=== PATIENT | female | born 1955 | race Caucasian/White ===

== ENCOUNTER 2016-09-12 08:13 | Observation (INO) | payer OTHER ==
[~2016-09-12] VITALS: Ht 157.5 cm; Wt 92.4 kg
[~2016-09-12 08:13] MED LIST: ALIG4CAP PO; ATOR20TA15 PO; CHOL1TAB42 PO; DHEA50CA PO; DULO1CAP3 PO; LEVO25TA4 PO; LOSA50TA2 PO; METF850T PO; OMEG300C5 PO; TRAZ100T6 PO; VITA200C3 PO; ZOFR4TAB PO
[2016-09-12] MEDS ORDERED: CHLORHEXIDINE GLUCONATE 2 % 1 PACK (2 CLOTHS) TOPICAL PRN (08:45)
[2016-09-12] MEDS ORDERED: INSULIN HUMAN REGULAR 1,000 UNITS/10 ML VIAL SQ PRN (08:45)
[2016-09-12] MEDS ORDERED: SODIUM CHLORID 0.9% 500 ML IV PRN (08:45)
[2016-09-12] MEDS ORDERED: POVIDONE IODINE 5% (ANTISEPSIS KIT) 4 APPLICATIONS EACH NARE PRN (08:45)
[2016-09-12] MEDS ORDERED: METOPROLOL TARTRATE 25 MG TAB PO PRN (08:45)
[2016-09-12] MEDS ORDERED: HEPARIN SODIUM - SQ 10,000 UNITS/ML VIAL SQ SCH (08:45)
[2016-09-12] MEDS: LACTATED RINGER'S 1000 ML IV PRN ×3 (09:20→19:15)
[2016-09-12 09:29] VITALS: BP 156/90; PULSE 90; RESP 16; TEMP 99; O2SAT 96
[2016-09-12 10:13] LABS: AUTOMATED NEUTROPHIL # 2.9 TH/MM3 (1.8-7.7); BASOPHIL # 0.1 TH/MM3 (0-0.2); BASOPHIL % 1.2 % (0.0-2.0); EOSINOPHIL # 0.2 TH/MM3 (0-0.4); EOSINOPHIL % 2.8 % (0.0-4.0); HEMATOCRIT 40.6 % (35.0-46.0); HEMO FLAGS DIFF FINAL; LYMPH % 36.3 % (9.0-44.0); LYMPHOCYTE # 2.1 TH/MM3 (1.0-4.8); MEAN CELL VOLUME 85.8 FL (80.0-100.0); MEAN CORPUSCULAR HGB CONC 33.8 % (32.0-36.0); NEUT % 49.7 % (16.0-70.0); PLATELET COUNT 291 TH/MM3 (150-450); RED BLOOD COUNT 4.73 MIL/MM3 (4.00-5.30); RED CELL DISTRIBUTION WIDTH 14.6 % (11.6-17.2); WHITE BLOOD COUNT 5.9 TH/MM3 (4.0-11.0)
[2016-09-12 10:21] LABS: ALT (GPT) 119 U/L (10-53)
[2016-09-12 10:22] LABS: PROTHROMBIN TIME - PATIENT 11.3 SEC (9.8-11.6)
[2016-09-12 10:23] LABS: ALKALINE PHOSPHATASE 86 U/L (45-117); TOTAL BILIRUBIN ADULT 0.8 MG/DL (0.2-1.0)
[2016-09-12 10:58] LABS: ANION GAP 6 MEQ/L (5-15); AST (GOT) 82 U/L (15-37); BICARBONATE 29.4 MEQ/L (21.0-32.0); BLOOD UREA NITROGEN 15 MG/DL (7-18); CHLORIDE 103 MEQ/L (98-107); GLOMERULAR FILTRATION RATE 78 ML/MIN (>89); POTASSIUM 4.2 MEQ/L (3.5-5.1); SODIUM (NA) 138 MEQ/L (136-145)
[2016-09-12] MEDS: ceFAZolin 2 GM PREMIX 50 ML IV SCH ×2 (11:51→19:14)
[2016-09-12] MEDS ORDERED: PROPOFOL 200 MG/20 ML AMP IV ONE (12:00)
[2016-09-12] MEDS ORDERED: PHENYLEPH/NS 1000 MCG/10 ML SYR IV ONE (12:00)
[2016-09-12] MEDS ORDERED: LACTATED RINGER'S 1000 ML INJ 1,000 ML IV ONE (12:00)
[2016-09-12] MEDS ORDERED: ONDANSETRON HCL 4 MG/2 ML VIAL IV PUSH ONE (12:00)
[2016-09-12] MEDS ORDERED: VECURONIUM BROMIDE 20 MG VIAL IV ONE (12:00)
[2016-09-12] MEDS ORDERED: NORMOSOL R INJ 1,000 ML IV ONE (12:00)
[2016-09-12] MEDS ORDERED: ACETAMINOPHEN 1000 MG/100 ML VIAL IV ONE (12:34)
[2016-09-12] MEDS ORDERED: MIDAZOLAM HCL 2 MG/2 ML VIAL ONE (12:45)
[2016-09-12] MEDS ORDERED: FAMOTIDINE 20 MG/2 ML VIAL ONE (12:45)
[2016-09-12] MEDS ORDERED: fentaNYL CITRATE 250 MCG/5 ML AMP ONE (13:07)
[2016-09-12] MEDS ORDERED: HYDROmorphone HCL PF 2 MG/ML VIAL ONE (13:07)
[2016-09-12] MEDS ORDERED: LIDOCAINE 1%/EPINEPHrine 1:100,000 SOLN 30 ML VIAL INFIL ONE (14:20)
[2016-09-12] MEDS ORDERED: SUGAMMADEX SODIUM 200 MG/2 ML VIAL IV PUSH ONE ×2 (16:29)
[2016-09-12] MEDS ORDERED: ceFAZolin INJ 1,000 MG VIAL IV ONE (16:30)
[2016-09-12] MEDS ORDERED: diphenhydrAMINE HCL 25 MG CAP PO PRN (17:30)
[2016-09-12] MEDS ORDERED: SODIUM CHLORIDE 0.9% FLUSH 10 ML FLUSH IV FLUSH PRN (17:30)
[2016-09-12] MEDS ORDERED: NON-FORMULARY DRUG (Ondansetron (Zofran) 4 MG) PO PRN (17:30)
[2016-09-12] MEDS ORDERED: HYDROmorphone HCL PF 1 MG/ML VIAL IVP PRN (17:30)
[2016-09-12] MEDS ORDERED: DEXTROSE 50% IN WATER 50 ML VIAL(D50) IV PUSH PRN (18:15)
[2016-09-12] MEDS ORDERED: GLUCAGON 1 MG/ML VIAL OTHER PRN (18:15)
[2016-09-12] MEDS ORDERED: ONDANSETRON ODT 4 MG TAB PO PRN (18:30)
[2016-09-12] MEDS: KETOROLAC TROMETHAMINE 30 MG/ML (IVP) VIAL IVP SCH ×2 (18:30→22:50)
[2016-09-12] MEDS: D5-1/2 NS + KCL 20 MEQ INJ 1,000 ML IV SCH (18:30)
[2016-09-12] MEDS ORDERED: DO NOT ADM ANY ANTICOAGULANT DRUGS PRN (19:15)
[2016-09-12 19:45] VITALS: O2SAT 96
[2016-09-12 20:00] VITALS: BP 124/65; PULSE 94; RESP 17; TEMP 96.2; O2SAT 98
[2016-09-12] MEDS: traZODone HCL 100 MG TAB PO SCH (20:28)
[2016-09-12] MEDS: oxyCODONE/ACETAMINOPHEN 5 MG/325 MG TAB PO PRN (20:28)
[2016-09-12] MEDS: INSULIN NovoLIN REGULAR SUPPLEMENTAL SCALE SQ SCH (20:43)
[2016-09-12] MEDS: SODIUM CHLORIDE 0.9% FLUSH 10 ML FLUSH IV FLUSH SCH (20:45)
[2016-09-12] MEDS ORDERED: ATORVASTATIN 20 MG TAB PO SCH (21:00)
[2016-09-13] VITALS (11 sets, daily range): BP systolic 98–143; BP diastolic 53–69; PULSE 92–136; RESP 17–20; TEMP 96.2–97.3; O2SAT 94–100
[2016-09-13] MEDS: oxyCODONE/ACETAMINOPHEN 5 MG/325 MG TAB PO PRN ×3 (00:21→22:31)
[2016-09-13] MEDS: KETOROLAC TROMETHAMINE 30 MG/ML (IVP) VIAL IVP SCH ×2 (06:25→11:04)
[2016-09-13] MEDS: LEVOTHYROXINE SODIUM 25 MCG TAB PO SCH (06:25)
[2016-09-13] MEDS: D5-1/2 NS + KCL 20 MEQ INJ 1,000 ML IV SCH (06:26)
[2016-09-13] MEDS ORDERED: OXYC1TAB63 PO (06:40)
[2016-09-13] MEDS: INSULIN NovoLIN REGULAR SUPPLEMENTAL SCALE SQ SCH ×4 (07:00→22:32)
[2016-09-13] MEDS: LORazepam 0.5 MG TAB PO PRN ×2 (07:04→14:36)
[2016-09-13] MEDS ORDERED: PRASTERONE PO SCH (09:00)
[2016-09-13] MEDS ORDERED: [UNRECOGNIZED DRUG - OTHER] PO SCH (09:00)
[2016-09-13] MEDS ORDERED: HYDROCHLOROTHIAZIDE 12.5 MG CAP PO SCH (09:00)
[2016-09-13] MEDS: DULoxetine HCl DR 60 MG CAP PO SCH ×2 (09:00→11:05)
[2016-09-13] MEDS ORDERED: NON-FORMULARY DRUG (Losartan-Hydrochlorothiazide 1 TAB) PO SCH (09:00)
[2016-09-13] MEDS ORDERED: LOSARTAN 50 MG TAB PO SCH (09:00)
[2016-09-13] MEDS: SODIUM CHLORIDE 0.9% FLUSH 10 ML FLUSH IV FLUSH SCH ×2 (09:00→22:31)
--- NOTE | 2016-09-13 09:30 | PD.CONS ---
HPI Service [facility] Hospitalists Consult Requested By Primary Care Physician Non-Staff Diagnoses: History of Present Illness Pt is 61 yo with dm 2, htn, celio, who was recently found to have a right ovarian mass. She was taken to operating room yesterday and the mass removed and apparently appeared benign. overnight she had some right side cp into abdomen and was felt to be gas pains from the surgery. She says that is getting better. This morning her bg was into 300 range while on d5. She tried to get up but felt faint and her heart rate was into the 130s with a lower systolic. I was asked to see her. She appears a little anxious but in no respiratory distress. She is able to answer all questions and her family is present. she is getting ready to try breakfast.. Review of Systems Other palpitation LH diaphoretic Past Family Social History Past Medical History htn dm 2 hypothyroidism peripheral neuropathy celio on cpap right ovary mass. fatty liver nephrolithiasis elevated lft hyperlipidemia hysterectomy Reported Medications Vitamin D-3 (Cholecalciferol) 2,000 Unit Tab 1 Tab PO DAILY Fish Oil ([place]-3 Fatty Acids) 300 Mg Capsule Unknown Dose PO DAILY Dhea (Prasterone (DHEA)) 50 Mg Cap 1 Cap PO DAILY Vitamin E 200 Unit Cap 400 Units PO DAILY Align (Lactobacillus Rhamnosus (GG)) 4 Mg Cap 4 Mg PO DAILY Trazodone (Trazodone HCl) 100 Mg Tablet 100 Mg PO HS Atorvastatin (Atorvastatin Calcium) 20 Mg Tab 20 Mg PO HS Duloxetine DR (Duloxetine HCl) 60 Mg Capdr 60 Mg PO DAILY Metformin (Metformin HCl) 850 Mg Tab 850 Mg PO BIDPC With meals Losartan-Hydrochlorothiazide 50-12.5 Mg Tab 1 Tab PO DAILY Levothyroxine (Levothyroxine Sodium) 25 Mcg Tab 25 Mcg PO DAILY Allergies: Coded Allergies: Demerol (Verified Adverse Reaction, Intermediate, N/V, 09/12/16) Physical Exam Vital Signs oriented no labored breathing on 2lnc 98-100% heart reg/tachy lung cta abd s/nt ext no pitting no pain to palpation over right chest wall. Vital Signs Date Time Temp Pulse Resp B/P Pulse Ox O2 Delivery O2 Flow Rate FiO2 09/13/16 08:24 96.7 117 20 111/68 98 09/13/16 07:19 111 20 102/53 99 09/13/16 07:00 96.2 136 18 98/60 98 7/25/17 06:30 115 20 113/69 09/13/16 04:00 97.0 120 18 143/58 100 09/13/16 00:00 97.1 92 17 126/61 97 09/12/16 20:00 96.2 94 17 124/65 98 09/12/16 19:45 96 Nasal Cannula 2.00 09/12/16 19:00 96 16 139/64 98 Nasal Cannula 2 09/12/16 18:45 94 16 137/61 97 Nasal Cannula 2 09/12/16 18:30 96 16 157/72 97 Nasal Cannula 2 09/12/16 18:15 98 16 165/74 97 Nasal Cannula 2 09/12/16 18:00 100 16 139/65 97 Nasal Cannula 2 09/12/16 17:45 100 16 136/64 97 Nasal Cannula 2 09/12/16 17:40 98.6 98 16 159/70 98 Nasal Cannula 2 Result Diagram: 09/12/1691909/12/16919 Assessment and Plan Problem List: (1) Ovarian mass Status: Acute Plan: Pt was admitted to Dr Guzman for removal of a right ovarian mass. It apparently looked benign but path pending. developed diaphoresis/sinus tach/LH/slight hypotension this AM. also hyperglycemia into 200-300 range while on D5. Pt c/o some right side cp radiating into abdomen overnight which was felt to be gas pain related from her surgery..she says it is at the moment better. cont NS ivf. 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 If her sx's persist will pursue further w/up. PE seems unlikely. (2) Tachycardia Status: Acute Plan: see above (3) DM (diabetes mellitus) Status: Acute Plan: see above (4) HTN (hypertension) Status: Chronic (5) CELIO (obstructive sleep apnea) Status: Chronic Plan: uses cpap at home. (6) LFT elevation Status: Chronic Plan: pt noted to have elevated lft on recent ED visit in July. still elevated. fatty liver noted on CT which could be the culprit. pt also on a statin. she can hold it and f/u with her pcp. Dre Dyson MD Sep 13, 2016 09:30
[2016-09-13 10:11] LABS: AUTOMATED NEUTROPHIL # 12.2 TH/MM3 (1.8-7.7); BASOPHIL % 0.1 % (0.0-2.0); EOSINOPHIL % 0.1 % (0.0-4.0); HEMATOCRIT 33.7 % (35.0-46.0); HEMO FLAGS DIFF FINAL; LYMPH % 9.4 % (9.0-44.0); LYMPHOCYTE # 1.4 TH/MM3 (1.0-4.8); MEAN CELL VOLUME 88.3 FL (80.0-100.0); MEAN CORPUSCULAR HEMOGLOBIN 28.7 PG (27.0-34.0); MEAN CORPUSCULAR HGB CONC 32.5 % (32.0-36.0); MONO % 8.5 % (0.0-8.0); NEUT % 81.9 % (16.0-70.0); PLATELET COUNT 421 TH/MM3 (150-450); RED BLOOD COUNT 3.82 MIL/MM3 (4.00-5.30); RED CELL DISTRIBUTION WIDTH 14.6 % (11.6-17.2); WHITE BLOOD COUNT 14.9 TH/MM3 (4.0-11.0)
[2016-09-13 11:04] LABS: BICARBONATE 17.8 MEQ/L (21.0-32.0); POTASSIUM 3.9 MEQ/L (3.5-5.1)
[2016-09-13] MEDS: SODIUM CHLOR 0.9% 1000 ML INJ 1,000 ML IV SCH (11:05)
[2016-09-13] MEDS ORDERED: hydrOXYzine HCL 10 MG TAB PO PRN (16:45)
[2016-09-13] MEDS: HEPARIN SODIUM - SQ 10,000 UNITS/ML VIAL SQ SCH (18:00)
[2016-09-13] MEDS: traZODone HCL 100 MG TAB PO SCH (21:00)
[2016-09-14] VITALS (17 sets, daily range): BP systolic 112–144; BP diastolic 55–79; PULSE 99–167; RESP 14–20; TEMP 97.3–99.8; O2SAT 93–100
[2016-09-14] MEDS: LEVOTHYROXINE SODIUM 25 MCG TAB PO SCH (05:34)
[2016-09-14] MEDS: HEPARIN SODIUM - SQ 10,000 UNITS/ML VIAL SQ SCH (05:34)
[2016-09-14] MEDS: SODIUM CHLOR 0.9% 1000 ML INJ 1,000 ML IV SCH ×2 (05:35→14:44)
[2016-09-14] MEDS: INSULIN NovoLIN REGULAR SUPPLEMENTAL SCALE SQ SCH ×4 (05:38→19:50)
--- NOTE | 2016-09-14 08:16 | HHI.PR ---
Subjective Remarks doing better in chair eating. no cp Objective Vitals heart reg lung cta abd s/nd. mild incisional pain. bs ext no edema Vital Signs Date Time Temp Pulse Resp B/P Pulse Ox O2 Delivery O2 Flow Rate FiO2 09/14/16 04:00 97.3 120 18 128/56 95 09/14/16 00:00 97.3 112 18 130/64 93 09/13/16 20:00 96.4 116 17 136/60 95 09/13/16 16:14 97.3 113 20 135/64 97 09/13/16 16:11 94 21 09/13/16 12:03 96.3 111 20 124/60 94 09/13/16 11:15 108 09/13/16 08:24 96.7 117 20 111/68 98 09/13/16 09/13/16 09/14/16 14:59 22:59 06:59 Intake Total 720 ml 819 ml Balance 720 ml 819 ml Intake Oral 720 ml IV Total 819 ml # Voids 1 1 5 Result Diagram: 09/13/16 0845 09/13/16 0845 A/P Problem List: (1) Ovarian mass Status: Acute Plan: Pt was admitted to Dr Guzman for removal of a right ovarian mass. It apparently looked benign but path pending. developed diaphoresis/sinus tach/LH/slight hypotension also hyperglycemia into 200-300 range while on D5. Pt c/o some right side cp radiating into abdomen overnight which was felt to be gas pain related from her surgery..she says it is at the moment better. .Labs showed chloé/dehydration. there is question as to whether pt has a PE given her persistent sinus tach cont ivf resume bp and dm meds as appropriate today f/u bmp...if cr ok then proceed with cta to exclude PE...discussed with dr Guzman who agrees ambulate and check HR and O2 sat. addendum: after ambulating. HR 130s, sat 88 % RA, VT 12 beat. repeat cr nml but hgb dropped to 7.5 and concern for active bleed. discussed with dr Guzman and we agreed to proceed with cta chest but she needs blood, ct a/p to eval for hemorrhage, and icu monitoring. (2) Tachycardia Status: Acute Plan: see above (3) DM (diabetes mellitus) Status: Acute Plan: see above (4) HTN (hypertension) Status: Chronic (5) CHERRIE (obstructive sleep apnea) Status: Chronic Plan: uses cpap at home. (6) LFT elevation Status: Chronic Plan: pt noted to have elevated lft on recent ED visit in July. still elevated. fatty liver noted on CT which could be the culprit. pt also on a statin. she can hold it and f/u with her pcp. Dre Dyson MD Sep 14, 2016 08:16
[2016-09-14] MEDS: SODIUM CHLORIDE 0.9% FLUSH 10 ML FLUSH IV FLUSH SCH ×2 (09:00→19:53)
--- NOTE | 2016-09-14 09:54 | EKG ---
Date Performed: 09/13/2016 Time Performed: 10:43:22 PTAGE: 61 years EKG: SINUS TACHYCARDIA NONSPECIFIC ST & T-WAVE ABNORMALITY ABNORMAL RHYTHM ECG NO PREVIOUS TRACING DOCTOR: Timbo Trevino Interpretating Date/Time 09/14/2016 09:53:09
[2016-09-14] MEDS: DULoxetine HCl DR 60 MG CAP PO SCH (10:14)
[2016-09-14] MEDS: oxyCODONE/ACETAMINOPHEN 5 MG/325 MG TAB PO PRN (10:15)
[2016-09-14 11:36] LABS: AUTOMATED NEUTROPHIL # 5.9 TH/MM3 (1.8-7.7); BASOPHIL % 0.5 % (0.0-2.0); EOSINOPHIL # 0.1 TH/MM3 (0-0.4); EOSINOPHIL % 0.6 % (0.0-4.0); HEMATOCRIT 22.3 % (35.0-46.0); HEMO FLAGS DIFF FINAL; LYMPH % 27.5 % (9.0-44.0); LYMPHOCYTE # 2.7 TH/MM3 (1.0-4.8); MEAN CELL VOLUME 85.9 FL (80.0-100.0); MEAN CORPUSCULAR HEMOGLOBIN 29.1 PG (27.0-34.0); MEAN CORPUSCULAR HGB CONC 33.8 % (32.0-36.0); MONO % 10.6 % (0.0-8.0); NEUT % 60.8 % (16.0-70.0); PLATELET COUNT 278 TH/MM3 (150-450); RED BLOOD COUNT 2.59 MIL/MM3 (4.00-5.30); RED CELL DISTRIBUTION WIDTH 14.7 % (11.6-17.2); WHITE BLOOD COUNT 9.6 TH/MM3 (4.0-11.0)
[2016-09-14 12:11] LABS: BICARBONATE 26.8 MEQ/L (21.0-32.0); POTASSIUM 3.5 MEQ/L (3.5-5.1)
[2016-09-14] MEDS ORDERED: POTASSIUM PHOSPHATE MONOBASIC 500 MG TAB PO ONE (13:00)
[2016-09-14] MEDS ORDERED: POTASSIUM CHLORIDE 20 MEQ CONTROLLED RELEASE TAB PO ONE (14:00)
[2016-09-14] MEDS: POTASSIUM PHOSPHATE/SODIUM PHOSPHATE 250 MG TAB PO SCH ×2 (14:43→17:38)
[2016-09-14 15:18] LABS: MEAN CELL VOLUME 85.9 FL (80.0-100.0); MEAN CORPUSCULAR HGB CONC 33.7 % (32.0-36.0); PLATELET COUNT 252 TH/MM3 (150-450); RED BLOOD COUNT 2.31 MIL/MM3 (4.00-5.30); RED CELL DISTRIBUTION WIDTH 14.8 % (11.6-17.2); WHITE BLOOD COUNT 7.9 TH/MM3 (4.0-11.0)
[2016-09-14 15:21] LABS: REVIEW FLAG FINAL
[2016-09-14 15:24] LABS: HEMATOCRIT 19.9 % (35.0-46.0)
[2016-09-14 16:58] LABS: APTT (PATIENT) 27.1 SEC (24.3-30.1); PROTHROMBIN TIME - PATIENT 10.8 SEC (9.8-11.6)
--- NOTE | 2016-09-14 17:04 | PD.CONS ---
[facility] Service Critical Care Medicine Consult Requested By Keerthi Guzman MD Reason for Consult hypoxia and tachycardia Primary Care Physician Non-Staff History of Present Illness This is a 61yF with history of an ovarian mass now POD 2 s/p laparoscopic oopherectomy. Her post-operative course is complicated by acute kidney injury POD 1 secondary to pre-renal azotemia which is resolving. Today she had an episode of shortness of breath while ambulating which was associated with a short run of ventricular tachycardia and hypoxia with room air spo2 88%. She is now sitting in a chair. she actually denies any symptoms to me today. does state she had a small bowel movement today and feels rumblings of gas. She denies significant abdominal pain. states she is hungry. states she is still a little thirsty. denies chest pain, shortness of breath, palpitations. denies nausea or vomiting. Hgb dropped from 7.5 to 6.7. The remainder of the history and ROS is negative unless otherwise noted. Review of Systems Constitutional: DENIES: Diaphoretic episodes, Fatigue, Fever, Chills, Dizziness Respiratory: COMPLAINS OF: Shortness of breath, DENIES: Apneas, Cough, Snoring , Wheezing, Hemoptysis, Sputum production Cardiovascular: COMPLAINS OF: Lower Extremity Edema, DENIES: Chest pain, Palpitations, Syncope, Dyspnea on Exertion, PND, Orthopnea, Claudication Gastrointestinal: DENIES: Abdominal pain, Black stools, Bloody stools, Constipation, Diarrhea, Nausea, Vomiting Genitourinary: DENIES: Abnormal vaginal bleeding Neurologic: DENIES: Headache Past Family Social History Allergies: Coded Allergies: Demerol (Verified Adverse Reaction, Intermediate, N/V, 09/12/16) Past Medical History htn dm 2 hypothyroidism peripheral neuropathy celio on cpap right ovary mass. fatty liver nephrolithiasis elevated lft hyperlipidemia Past Surgical History hysterectomy Reported Medications Vitamin D-3 (Cholecalciferol) 2,000 Unit Tab 1 Tab PO DAILY Fish Oil ([place]-3 Fatty Acids) 300 Mg Capsule Unknown Dose PO DAILY Dhea (Prasterone (DHEA)) 50 Mg Cap 1 Cap PO DAILY Vitamin E 200 Unit Cap 400 Units PO DAILY Align (Lactobacillus Rhamnosus (GG)) 4 Mg Cap 4 Mg PO DAILY Trazodone (Trazodone HCl) 100 Mg Tablet 100 Mg PO HS Atorvastatin (Atorvastatin Calcium) 20 Mg Tab 20 Mg PO HS Duloxetine DR DallasDuloxetine HCl) 60 Mg Capdr 60 Mg PO DAILY Metformin (Metformin HCl) 850 Mg Tab 850 Mg PO BIDPC With meals Losartan-Hydrochlorothiazide 50-12.5 Mg Tab 1 Tab PO DAILY Levothyroxine (Levothyroxine Sodium) 25 Mcg Tab 25 Mcg PO DAILY Active Ordered Medications See MAR Family History reviewed and found to be noncontributory to her acute illness Social History here with her Physical Exam Vital Signs Vital Signs Date Time Temp Pulse Resp B/P Pulse Ox O2 Delivery O2 Flow Rate FiO2 09/14/16 12:00 99.8 110 18 112/55 96 09/14/16 08:00 98.3 107 14 144/65 94 09/14/16 04:00 97.3 120 18 128/56 95 09/14/16 00:00 97.3 112 18 130/64 93 09/13/16 20:00 96.4 116 17 136/60 95 Physical Exam gen: middle-aged obese female sitting in a chair, no acute distress. alert and oriented. heent: nc. at. perrl. mmm neck: no jvd. trachea midline. chest: unlabored. equal chest rise. on room air. spo2 98%. clear to auscultation cv: slightly tachycardic rate, regular rhythm. abd: soft, mildly tender to palpation. nondistended. laproscope incisions clean and dry with steri strips. no guarding or rebound. extr: 1+ peripheral edema. distal pulses 2+ neuro: RASS 0. a+ox3. GCS 15. no gross focal deficits. Laboratory Laboratory Tests Test 09/14/16 09/14/16 09/14/16 11:24 15:02 16:02 White Blood Count 9.6 7.9 Red Blood Count 2.59 2.31 Hemoglobin 7.5 6.7 Hematocrit 22.3 19.9 Mean Corpuscular Volume 85.9 85.9 Mean Corpuscular Hemoglobin 29.1 29.0 Mean Corpuscular Hemoglobin 33.8 33.7 Concent Red Cell Distribution Width 14.7 14.8 Platelet Count 278 252 Mean Platelet Volume 7.3 7.2 Neutrophils (%) (Auto) 60.8 Lymphocytes (%) (Auto) 27.5 Monocytes (%) (Auto) 10.6 Eosinophils (%) (Auto) 0.6 Basophils (%) (Auto) 0.5 Neutrophils # (Auto) 5.9 Lymphocytes # (Auto) 2.7 Monocytes # (Auto) 1.0 Eosinophils # (Auto) 0.1 Basophils # (Auto) 0.0 CBC Comment DIFF FINAL Differential Comment Sodium Level 140 Potassium Level 3.5 Chloride Level 105 Carbon Dioxide Level 26.8 Anion Gap 8 Blood Urea Nitrogen 13 Creatinine 0.65 Estimat Glomerular Filtration 93 Rate Random Glucose 121 Calcium Level 8.3 Phosphorus Level 1.1 Magnesium Level 2.0 Blood Type O POSITIVE Crossmatch Leukocyte-Reduced Red Blood Cells Blood Bank Comment Result Diagram: 09/14/16 1502 09/14/16 1124 Assessment and Plan Assessment and Plan Assessment: 61yF POD 2 s/p laparoscopic oopherectomy with anemia likely secondary to acute blood loss and new-onset shortness of breath with exertion. I agree with CT pulmonary angiogram to rule out PE as a cause. Also agree with CT abd/pelvis to evaluate for ongoing bleeding. Would agree given recent KEYLA with transfusion of 1 unit prbc. Will check serial hgb. Patient does not meet criteria for ICU admission at this time, but we will keep her on the ICU service and continue to monitor her. Recommendations: Anemia secondary to acute blood loss -- 1 unit prbc -- trend q4h h&h -- goal hgb > 7 -- CT abd/pelvis to assess for bleeding. Acute kidney injury - resolving -- continue mivf Shortness of breath -- agree with CT pulmonary angiogram -- risk/benefit of anticoagulation right now is in favor of holding off until CT is complete, given anemia and concern for active bleeding. CCM will continue to follow. Code Status Full Code Steve Hartmann MD Sep 14, 2016 17:04
[2016-09-14] MEDS ORDERED: IOHEXOL 350 MG/ML 10 ML VIAL (for RAD DIAG) IV ONE (17:29)
[2016-09-14] MEDS ORDERED: POTASSIUM CHLORIDE 25 MEQ EFFERVESCENT TAB PO ONE (17:30)
[2016-09-14] MEDS: diphenhydrAMINE HCL 25 MG CAP PO PRN (17:39)
[2016-09-14] MEDS: ACETAMINOPHEN 500 MG CPLT PO PRN (17:39)
--- NOTE | 2016-09-14 18:08 | RADRPT ---
EXAM DATE/TIME: 09/14/2016 17:22 [facility] COMPARISON: No previous studies available for comparison. INDICATIONS : shortness of breat, S/P oopherectomy. IV CONTRAST: 95 cc Omnipaque 350 (iohexol) IV ; Cumulative dose for multiple exams. RADIATION DOSE: 23.10 CTDIvol (mGy) ; Combined studies - Thorax/Abdomen/Pelvis MEDICAL HISTORY : Hypertension. SURGICAL HISTORY : Cholecystectomy. Hysterectomy.oopherectomy ENCOUNTER: Initial ACUITY: 2 days PAIN SCALE: 5/10 LOCATION: chest TECHNIQUE: Volumetric scanning of the chest was performed using a pulmonary embolism protocol MIP images were re constructed. Using automated exposure control and adjustment of the mA and/or kV according to patien t size, radiation dose was kept as low as reasonably achievable to obtain optimal diagnostic quality images. DICOM format image data is available electronically for review and comparison. Follow-up recommendations for incidentally detected pulmonary nodules are based at a minimum on nodul e size and patient risk factors according to Fleischner Society Guidelines. FINDINGS: There is no evidence of pulmonary embolism. Scattered atelectasis is noted bilaterally. No alveolar consolidation is noted to suggest pneumonia. No pulmonary nodule or mass is noted. No mediastinal, hilar, or axillary lymphadenopathy is noted. The heart is enlarged. There is diffuse fatty infiltr ation of an enlarged liver. CONCLUSION: 1. No evidence of pulmonary embolism. 2. Scattered atelectatic changes bilaterally. 3. Cardiomegaly. 4. Enlarged fatty liver. Raghavendra Hartman MD on September 14, 2016 at 18:01 Board Certified Radiologist. This report was verified electronically.
--- NOTE | 2016-09-14 18:21 | RADRPT ---
EXAM DATE/TIME: 09/14/2016 17:22 [facility] COMPARISON: CT PULMONARY ANGIOGRAM, September 14, 2016, 17:22. INDICATIONS : Evaluate for hematoma, S/P oopherectomy . IV CONTRAST: 95 cc Omnipaque 350 (iohexol) IV ; Cumulative dose for multiple exams. ORAL CONTRAST: No oral contrast ingested. RADIATION DOSE: 19.84 CTDIvol (mGy) ; Combined studies - Thorax/Abdomen/Pelvis MEDICAL HISTORY : Hypertension. SURGICAL HISTORY : Cholecystectomy. Hysterectomy. Oophorectomy ENCOUNTER: Initial ACUITY: 2 days PAIN SCALE: 5/10 LOCATION: Bilateral lower quadrant TECHNIQUE: Volumetric scanning of the abdomen and pelvis was performed. Using automated exposure control and ad justment of the mA and/or kV according to patient size, radiation dose was kept as low as reasonably achievable to obtain optimal diagnostic quality images. DICOM format image data is available electro nically for review and comparison. FINDINGS: There is evidence of high density ascites within the pelvis suggestive of active bleeding. Clinical correlation is recommended. The liver is enlarged and demonstrates fatty infiltration. No focal mas s or laceration is noted. The patient is status post cholecystectomy. No biliary ductal dilatation is noted. The pancreas is normal. The spleen is intact without laceration. There are multiple fat-co ntaining lesions within the left kidney consistent with angiomyolipomas, the largest measures 1.9 cm in size. There are tiny calcified nonobstructing right renal calculi, the largest measures 3 mm. Th e urinary bladder is unremarkable. Degenerative changes and scoliosis of the lumbar spine are noted. CONCLUSION: 1. High density ascites indicating probable active hemorrhage within the pelvis. Clinical correlatio n is recommended. The findings were discussed with the patient's nurse at 6: 2. 30 PM on 09/14/16. 3. Enlarged fatty liver. 4. Multiple fat-containing nodules within the left kidney consistent with probable angiomyolipomas wi th the largest measuring 1.9 cm. 5. Multiple calcified nonobstructing right renal calculi with the largest measuring 3 mm. 6. Degenerative changes and scoliosis of the thoracolumbar spine. Raghavendra Hartman MD on September 14, 2016 at 18:03 Board Certified Radiologist. This report was verified electronically.
[2016-09-14] MEDS: POTASSIUM PHOSPHATE MONOBASIC 500 MG TAB PO SCH (19:53)
[2016-09-14] MEDS: traZODone HCL 100 MG TAB PO SCH (21:00)
[2016-09-14 21:35] LABS: HEMATOCRIT 20.2 % (35.0-46.0); REVIEW FLAG FINAL
[2016-09-14] MEDS ORDERED: fentaNYL CITRATE 250 MCG/5 ML AMP ONE (21:57)
[2016-09-14] MEDS ORDERED: IODIXANOL 320 MG/ML 50 ML VIAL (for RAD SPEC) I-ARTERIAL ONE (23:16)
--- NOTE | 2016-09-14 23:22 | PD.RAD ---
Post Procedure Progress Note Pre Procedure Diagnosis: (1) Intraperitoneal hemorrhage Post Procedure Diagnosis: (1) Intraperitoneal hemorrhage Procedure Date: Sep 14, 2016 Supervising Radiologist: Nelson Del Castillo JR Proceduralist/Assist: Rhea Rice, RT(R), Page Jj RT(R)() Anesthesia: Other Plan of Activity Patient to Unit: Critical Care Patient Condition: Good Additional Comments: Venography of the gonadal veins bilaterally show no source of hemorrhage although this patient has competent valves and was not able to gain access deep into the pelvis. 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 No source of hemorrhage. Unable to localize ovarian arteries but this isn't surprising given the prior hysterectomy. See PACS Report for procedural detail/treatment Jr. Abundio,Nelson Locke MD Sep 14, 2016 23:22
[2016-09-15] VITALS (13 sets, daily range): BP systolic 133–181; BP diastolic 66–97; PULSE 72–112; RESP 18–20; TEMP 96.9–98.3; O2SAT 95–100
[2016-09-15] MEDS: ACETAMINOPHEN 500 MG CPLT PO PRN (00:24)
[2016-09-15] MEDS: POTASSIUM PHOSPHATE/SODIUM PHOSPHATE 250 MG TAB PO SCH ×5 (00:24→23:10)
[2016-09-15] MEDS: diphenhydrAMINE HCL 25 MG CAP PO PRN (00:25)
[2016-09-15] MEDS: SODIUM CHLOR 0.9% 1000 ML INJ 1,000 ML IV SCH (02:00)
[2016-09-15] MEDS: LEVOTHYROXINE SODIUM 25 MCG TAB PO SCH (06:07)
[2016-09-15] MEDS: INSULIN NovoLIN REGULAR SUPPLEMENTAL SCALE SQ SCH ×4 (06:07→21:00)
[2016-09-15] MEDS ORDERED: FUROSEMIDE 20 MG/2 ML VIAL IV PUSH ONE ×2 (06:45→17:00)
[2016-09-15 06:59] LABS: BASOPHIL % 0.4 % (0.0-2.0); EOSINOPHIL # 0.1 TH/MM3 (0-0.4); EOSINOPHIL % 0.8 % (0.0-4.0); HEMATOCRIT 29.6 % (35.0-46.0); HEMO FLAGS DIFF FINAL; LYMPH % 17.9 % (9.0-44.0); LYMPHOCYTE # 1.7 TH/MM3 (1.0-4.8); MEAN CELL VOLUME 83.9 FL (80.0-100.0); MEAN CORPUSCULAR HEMOGLOBIN 28.6 PG (27.0-34.0); MEAN CORPUSCULAR HGB CONC 34.1 % (32.0-36.0); MONO % 8.4 % (0.0-8.0); NEUT % 72.5 % (16.0-70.0); PLATELET COUNT 246 TH/MM3 (150-450); RED BLOOD COUNT 3.52 MIL/MM3 (4.00-5.30); RED CELL DISTRIBUTION WIDTH 16.3 % (11.6-17.2); WHITE BLOOD COUNT 9.7 TH/MM3 (4.0-11.0)
[2016-09-15 07:16] LABS: ALT (GPT) 54 U/L (10-53); ANION GAP 8 MEQ/L (5-15); AST (GOT) 27 U/L (15-37); BICARBONATE 27.1 MEQ/L (21.0-32.0); BLOOD UREA NITROGEN 7 MG/DL (7-18); CHLORIDE 106 MEQ/L (98-107); GLOMERULAR FILTRATION RATE 132 ML/MIN (>89); POTASSIUM 3.6 MEQ/L (3.5-5.1); SODIUM (NA) 141 MEQ/L (136-145)
[2016-09-15 07:18] LABS: ALKALINE PHOSPHATASE 82 U/L (45-117); TOTAL BILIRUBIN ADULT 1.3 MG/DL (0.2-1.0)
[2016-09-15 07:22] LABS: CREATINE KINASE 186 U/L (26-192)
[2016-09-15 07:34] LABS: CKMB 1.3 NG/ML (0.5-3.6)
[2016-09-15 08:47] LABS: HEMATOCRIT 31.8 % (35.0-46.0); REVIEW FLAG FINAL
[2016-09-15] MEDS: POTASSIUM PHOSPHATE MONOBASIC 500 MG TAB PO SCH (09:00)
[2016-09-15] MEDS: SODIUM CHLORIDE 0.9% FLUSH 10 ML FLUSH IV FLUSH SCH ×2 (09:05→22:08)
[2016-09-15] MEDS: DULoxetine HCl DR 60 MG CAP PO SCH (09:08)
--- NOTE | 2016-09-15 11:17 | ECHRPT ---
Indication: Shortness of breath CONCLUSIONS Normal left ventricular size. Mild concentric left ventricular hypertrophy. The left ventricular systolic function is hyperdynamic with an estimated ejection fraction in the ra nge of 65- 70%. There is trace tricuspid valve regurgitation. The pulmonary valve is not well visualized. BP: 181 / 84 HR: 112 Rhythm: Sinus Technical Quality:Fair FINDINGS LEFT VENTRICLE Normal left ventricular size. Mild concentric left ventricular hypertrophy. The left ventricular systolic function is hyperdynamic with an estimated ejection fraction in the ra nge of 65- 70%. RIGHT VENTRICLE Normal right ventricular size and systolic function. LEFT ATRIUM The left atrial size is normal. RIGHT ATRIUM The right atrial size is normal. ATRIAL SEPTUM Normal atrial septal thickness without atrial level shunting by limited color doppler interrogation. AORTA The aortic root and proximal ascending aorta are normal in size on limited imaging. MITRAL VALVE Structurally normal mitral valve. No mitral valve stenosis or regurgitation. AORTIC VALVE Trileaflet aortic valve. No aortic valve stenosis or regurgitation. TRICUSPID VALVE There is trace tricuspid valve regurgitation. PULMONARY VALVE The pulmonary valve is not well visualized. VESSELS The inferior vena cava is normal in size. PERICARDIUM No pericardial effusion. Timbo Trevino MD (Electronically Signed) Final Date:15 September 2016 11:16
--- NOTE | 2016-09-15 12:11 | RADRPT ---
EXAM DATE/TIME: 09/14/2016 21:26 [facility] COMPARISON: No previous studies available for comparison. INDICATIONS : Patient with post ovarian mass removal in need of pelvic angiogram and venogram. MEDICAL HISTORY : HTN, Diabetes, Hypothyroidism, Peripheral neuropathy, Right ovary mass, Fatty liver, Nephrolithiasis, HLD SURGICAL HISTORY : Hysterectomy, Ovarian mass laparoscopic oophorectomy ENCOUNTER: Initial ACUITY: 2 days PAIN SCORE: 0/10 FLUORO TIME: 27.5 minutes IMAGE SERIES: 11 ACCESS SITE: Right Femoral artery and femoral vein CONTRAST: 1.) 180 cc Visipaque (iodixanol) MEDICATION(S): 1.) 250 mcg fentanyl (Sublimaze) IV DEVICE(S): 1.) Right common femoral artery Syvek pad PROCEDURE : 1. Ultrasound-guided puncture of the access site(x2). 2. Conscious sedation with continuous EKG and Oximetry monitoring. 3. Venography of the right gonadal vein 4. Venography of the left gonadal vein 5. Angiography of the abdominal aorta 6. Angiography of the right internal iliac artery 7. Angiography of the left internal iliac artery I spoke with Dr. Guzman prior to the exam. This is a 61-year-old female who underwent laparoscopic ly sis of adhesions and pelvic mass removal. The mass is within the right pelvis and was the major area of surgery. Some lysis of adhesions on the left. Patient has hemoperitoneum and decreasing hemoglobin /hematocrit. The risks, benefits and alternatives to the procedure were explained and verbal and written consent w as obtained. The site was prepped in sterile fashion. Full sterile technique was used, including ca p, mask, sterile gloves and gown and a large sterile sheet. Hand hygiene and 2% chlorhexidine and/or betadine/alcohol prep was utilized per protocol for cutaneous antisepsis. The skin and subcutaneous tissues were infiltrated with local anesthetic solution. With ultrasound and fluoroscopic guidance the right common femoral vein was punctured and a vascular sheath was placed. A Johnson catheter was utilized to cannulate the right ovarian vein. Attempts at c oursing the catheter inferiorly were unsuccessful due to the competent valves. A venogram was perform ed which opacified the more cephalad portion of the vein. The valves prevented contrast from coursing into the pelvis. The patient has also had prior hysterectomy and therefore this vein is ligated with in the pelvis. No extravasation of contrast is seen to suggest a source of hemorrhage. The left renal vein and subsequently gonadal vein were then selected and once again the competent valves prevented passage of the catheter inferiorly. A venogram on the left shows no source of extravasation although the competent valves prevented opacification within the pelvis. This has been ligated due to the prio r hysterectomy. Attention was then turned to the arterial side. Under sonographic guidance the right common femoral a rtery was accessed. A 4 Irish sheath was placed. An Omni flush catheter was passed into the lower piyush wel aorta and a pelvic arteriogram performed. An Omni flush catheter was utilized to select the right internal iliac artery and subsequently the left internal iliac artery. Angiography was performed quoc wing occlusion of the uterine arteries bilaterally in this patient with prior hysterectomy. No extrav asation observed. No source of hemorrhage seen. Attempts were made to cannulate the ovarian arteries. These were not able to be identified which is not surprising given the hysterectomy. The puncture site was closed with manual pressure and hemostasis was obtained. The patient tolerated the procedure well and there were no complications. Conscious sedation was performed with the prescribed dosages and duration as above in the presence of an independent trained radiology nurse to assist in the monitoring of the patient. EKG and oximetry remained stable throughout the procedure. CONCLUSION: 1. Venography of the ovarian veins as well as pelvic arteriography showed no source of hemorrhage. Ex pected changes relating to the patient's prior hysterectomy. Nelson Del Castillo Jr., MD on September 15, 2016 at 12:00 Board Certified Radiologist. This report was verified electronically.
--- NOTE | 2016-09-15 12:13 | MP ---
cc: EVA LEON M.D., KELLY L. MD DATE OF SURGERY: 09/12/2016 PREOPERATIVE DIAGNOSIS 1. Pelvic mass. 2. History of severe endometriosis. 3. Status post prior hysterectomy, bilateral salpingo-oophorectomy. POSTOPERATIVE DIAGNOSIS 1. Pelvic mass. 2. History of severe endometriosis. 3. Status post prior hysterectomy, bilateral salpingo-oophorectomy. 4. 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 5. Extensive pelvic adhesions. PROCEDURE Robotic-assisted laparoscopic resection of right pelvic mass (resection of an apparent right ovarian mass), extensive lysis of adhesions, left retroperitoneal dissection. SURGEON Keerthi Guzman. GIN POLE OPERATOR [employer] Manager. ANESTHESIA General endotracheal. ESTIMATED BLOOD LOSS 300 cc. IV FLUIDS 1000 cc. URINE OUTPUT 450 cc. HISTORY A 61-year-old female who was found to have a pelvic mass on imaging as she presented to the emergency room with acute onset of pain thought to be due to passage of a kidney stone. Whereas this pain resolved after passage of the stone, imaging showed an approximately 7 cm complex mass in the pelvis seemingly arising from the right pelvic sidewall. No overt evidence to suggest metastatic disease. She was seen in the ROLLING MACHINE TENDER oncology office where possibilities were discussed and options were considered. She was in favor of definitive surgical management. She is seen in the pre-op holding where were again these findings are discussed and surgery is reviewed. Questions were answered. She expressed good understanding and wished to move forward with surgery. FINDINGS In the pelvis there was a complex mass approximately 7 cm, multilobulated, partially retroperitonealized against the right pelvic sidewall. There are multiple loops of small bowel fixed onto and round this mass and adjacent structures. There were prior surgical staple lines immediately adjacent to this mass on what appears to be the infundibulopelvic ligament and there is a substantial inflammatory adhesive response with loops of bowel in that vicinity. Additionally, the left colon is densely adherent to the left pelvic sidewall. Retroperitoneal dissection after mobilization of the colon shows a similar staple line at the distal edge of the infundibulopelvic ligament. Careful inspection and palpation does not reveal any residual ovarian tissue. No mass or nodularity on the left side. Preliminary frozen section evaluation of the right ovarian mass shows features that are benign, may have features suggestive of a mature teratoma, possibly a mucinous cystadenoma, possibly a mixed neoplasm with features of both. No evidence of malignancy. STATEMENT OF COMPLEXITY The complexity of this case was significantly increased due to dense extensive pelvic adhesions that required at least an additional one hour time to lyse adhesions to mobilize the fixed loops of bowel, restore normal anatomy and to accomplish surgical objectives. A modifier should be applied accordingly. DETAILS OF PROCEDURE The patient was taken to the operating room, placed in dorsal lithotomy position. After general endotracheal anesthesia was administered a timeout was undertaken and she was identified by sight recognition and hospital ID bracelet, and the proposed procedure was reviewed and confirmed. She was carefully positioned in padded Wander stirrups. Her arms were padded and secured to the sides. She was further secured to the operating table with eggcrate padding and tape in an across chest over the shoulder fashion. All sites were noted to be properly aligned without malalignments or pressure points. She was prepped and draped in sterile fashion. A Avila catheter was placed in the bladder, a manipulator placed in the vagina. An orogastric tube was placed in the stomach on suction. With manual elevation of the abdominal wall and direct laparoscopic visualization, a 5 mm cannula was introduced into the left upper quadrant. Carbon dioxide gas was insufflated. An atraumatic entry was confirmed. A 12 mm cannula was placed in the midline above the umbilicus. An 8 mm cannula was placed in the right upper quadrant and another 8 mm cannula in the left lateral quadrant. The right and left incisions were made through preexisting laparoscopic incisions. She was placed in steep Trendelenburg position. Peritoneal washings were obtained for cytology. The anatomy was surveyed with findings as described above. Some initial lysis of adhesions was carried out with sharp dissection. Three Ray-Chiquita sponges were placed into the peritoneal cavity. The robotic system was brought into the operative field and attached in the usual fashion. Monopolar scissors, fenestrated bipolar forceps and ProGrasp manipulators were placed in arms #1, 2 and 3 respectively and I took my place at the surgeon's console. Extensive time was spent lysing adhesions, sharp dissection to meticulously free the loops of bowel from being stuck one to each other and from being stuck in the right lower quadrant overlying the gonadal vessels and this pelvic mass. The colonic mesentery was adherent medially which was taken down with sharp dissection and as the loops of small bowel were and adhesions were dissected in such a way that the bowel could be retracted above the pelvic brim, isolating the sidewall structures. The residual round ligament was isolated. Retroperitoneal dissection was carried out. The ureter was detected. The medial leaf of the broad ligament and the infundibulopelvic ligament was isolated above the level of the pelvic brim. The peritoneum was opened below the infundibulopelvic ligament. The infundibulopelvic ligament was dissected proximally to the pelvic brim as the ureter was retracted posteriorly. The infundibulopelvic ligament was cauterized and transected. Additional dissection was carried out sharply posteriorly to free the colonic mesentery and to free the mass from the cul-de-sac. Retroperitoneal dissection was carried out freeing the mass from its retroperitoneal position and dissection was carried out circumferentially until the residual utero-ovarian ligament was isolated which was cauterized and transected thereby removing this mass which was placed in the right pericolic gutter for later retrieval. The colon and its dense adhesions were taken down from the left pelvic sidewall and continued dissection to bring the colon medially. Retroperitoneal dissection was carried out where identification of the residual infundibulopelvic ligament was identified. There was a surgical staple line on the distal end of it. Inspection and palpation failed to reveal any obvious ovarian remnant or any other persistent tissue in that region, so it was felt that no further dissection was required. The pelvis was thoroughly irrigated. Small bleeders were rendered hemostatic with bipolar cautery. The bowel was inspected and noted to be intact. No serosal defects. No defects in the bowel. Good peristalsis. Scientology of normal anatomy without adhesions. The robotic instruments were removed from the surgical field. The robotic system was disengaged. I reentered the bedside under sterile condition. Each of the three Ray-Chiquita sponges that were placed in the peritoneal cavity were now removed through the 12 mm cannula. Each were inspected and noted to be removed in their entirety. A 12 cm EndoCatch bag was introduced to capture the right pelvic mass, brought to the surface, contained within the bag. The surface of this mass was disrupted with sharp dissection. Thick mucinous material was drained and using ring forceps in a stepwise fashion the solid components were removed until the mass was reduced in size enough to be delivered and contained within the bag through the laparoscopic incision site. Change of sterile gloves was undertaken. The 12 mm fascial defect was closed with interrupted 0 Vicryl sutures using the needle pass apparatus, tied securely which rendered the fascia completely airtight and hemostatic. The remaining laparoscopic sites were closed with 3-0 Vicryl subcutaneous, 3-0 Vicryl subcuticular and Steri-Strips. Pelvic exam confirmed there were no remaining foreign objects in the vagina as the manipulator was removed. Preliminary and final counts were correct. She was returned to dorsal supine position and was pending reversal of anesthesia when I left the operating room to precede her to the post-anesthesia care unit. MD BALAJI Tang/LUIS FERNANDO /6:54 AM /11:40 AM
[2016-09-15 12:19] LABS: HEMATOCRIT 30.1 % (35.0-46.0); REVIEW FLAG FINAL
[2016-09-15 15:01] LABS: HEMATOCRIT 28.5 % (35.0-46.0); REVIEW FLAG FINAL
--- NOTE | 2016-09-15 20:53 | HHI.CCPN ---
Subjective Remarks/Hospital Course Hospital Course: This is a 61yF with history of an ovarian mass now POD 2 s/p laparoscopic oopherectomy. Her post-operative course is complicated by acute kidney injury POD 1 secondary to pre-renal azotemia which is resolving. Today she had an episode of shortness of breath while ambulating which was associated with a short run of ventricular tachycardia and hypoxia with room air spo2 88%. She is now sitting in a chair. she actually denies any symptoms to me today. does state she had a small bowel movement today and feels rumblings of gas. She denies significant abdominal pain. states she is hungry. states she is still a little thirsty. denies chest pain, shortness of breath, palpitations. denies nausea or vomiting. Hgb dropped from 7.5 to 6.7. The remainder of the history and ROS is negative unless otherwise noted. Subjective: 09/15: IR attempted to embolize active pelvic bleeder overnight and was unsuccessful. however, today patient's hgb has remained largely stable with only drop 1 point since this morning. patient states she feels less good than yesterday afternoon when I interviewed the patient, but does state that she feels better than overnight. denies any worsening abdominal pain, headache, or other complaints. now on 5L NC, and getting lasix. Objective Vital Signs Date Time Temp Pulse Resp B/P Pulse Ox O2 Delivery O2 Flow Rate FiO2 09/15/16 20:00 96.9 88 20 148/79 100 09/13/16 16:11 21 09/12/16 19:45 Nasal Cannula 2.00 Intake and Output 09/14/16 09/14/16 09/14/16 07:59 15:59 23:59 Intake Total 819 ml 684 ml 1246 ml Output Total 4 ml Balance 819 ml 680 ml 1246 ml Result Diagram: 09/15/16 1439 09/15/16 0634 Objective Remarks gen: middle-aged obese female lying in bed, mild distress, mildly tachypneic. alert and oriented. heent: nc. at. perrl. mmm neck: no jvd. trachea midline. chest: mildly tachypneic. equal chest rise. 5L o2 by NC. cv: slightly tachycardic rate, regular rhythm. abd: soft, mildly tender to palpation. nondistended. laparoscope incisions clean and dry with steri strips. no guarding or rebound. extr: 1+ peripheral edema. distal pulses 2+ neuro: RASS 0. a+ox3. GCS 15. no gross focal deficits. A/P Assessment and Plan Assessment: 61yF POD 3 s/p laparoscopic oopherectomy with post-op hemorrhage. Agree with lasix as patient appears intravascularly volume overloaded. also agree with continuing serial H&H, but will decrease frequency to q6h. continue to monitor closely. Recommendations: Anemia secondary to acute blood loss, post-op hemorrhage -- trend q6h h&h -- goal hgb > 7 Acute kidney injury - resolving -- SLIVF in the setting of volume overload Shortness of breath Intravascular volume overload Acute pulmonary insufficiency -- CT pulmonary angiogram 09/14 negative for PE -- agree with lasix. [facility] will continue to follow. Steve Hartmann MD Sep 15, 2016 20:52
[2016-09-15 21:14] LABS: HEMATOCRIT 28.6 % (35.0-46.0); REVIEW FLAG FINAL
[2016-09-15] MEDS: traZODone HCL 100 MG TAB PO SCH (22:01)
[2016-09-16] VITALS: BP 139/86; PULSE 89; RESP 20; TEMP 96.7; O2SAT 100
[2016-09-16 04:00] VITALS: BP 139/75; PULSE 86; RESP 20; TEMP 97; O2SAT 98
[2016-09-16 05:09] LABS: HEMATOCRIT 27.8 % (35.0-46.0); REVIEW FLAG FINAL
[2016-09-16] MEDS: LEVOTHYROXINE SODIUM 25 MCG TAB PO SCH (05:24)
[2016-09-16] MEDS: POTASSIUM PHOSPHATE/SODIUM PHOSPHATE 250 MG TAB PO SCH (05:24)
[2016-09-16] MEDS: INSULIN NovoLIN REGULAR SUPPLEMENTAL SCALE SQ SCH (05:27)
[2016-09-16 07:59] VITALS: PULSE 90
[2016-09-16 08:00] VITALS: BP 128/85; PULSE 88; RESP 18; TEMP 96.5; O2SAT 99
[2016-09-16] MEDS: SODIUM CHLORIDE 0.9% FLUSH 10 ML FLUSH IV FLUSH SCH (08:12)
[2016-09-16] MEDS: DULoxetine HCl DR 60 MG CAP PO SCH (08:12)
--- NOTE | 2016-09-16 09:12 | HHI.PR ---
Subjective Remarks eager for d/c. denies any sx's Objective Vitals heart reg lung cta abd s/nt ext no edema Vital Signs Date Time Temp Pulse Resp B/P Pulse Ox O2 Delivery O2 Flow Rate FiO2 09/16/16 08:00 96.5 88 18 128/85 99 09/16/16 04:00 98 Room Air 21 09/16/16 04:00 97.0 86 20 139/75 98 09/16/16 00:00 96.7 89 20 139/86 100 09/16/16 00:00 96.7 89 20 139/86 100 09/15/16 21:00 107 09/15/16 20:00 96.9 88 20 148/79 100 09/15/16 16:03 82 09/15/16 16:00 97.9 79 18 166/89 100 09/15/16 12:02 92 09/15/16 12:00 97.7 100 18 138/79 100 09/15/16 09/15/16 09/16/16 15:00 23:00 07:00 Intake Total 840 ml 240 ml Balance 840 ml 240 ml Intake Oral 840 ml 240 ml # Voids 5 2 # Bowel Movements 1 Result Diagram: 09/16/16 0317 09/15/16 0634 A/P Problem List: (1) Ovarian mass Status: Acute Plan: Pt was admitted to Dr Guzman for removal of a right ovarian mass. It apparently looked benign but path pending. developed diaphoresis/sinus tach/LH/slight hypotension also hyperglycemia into 200-300 range while on D5. Pt noted to have chloé/dehydration probably from the bowel prep ..that resolved with ivf. She had persistent hypoxia with ambulation and sinus tach. cta negative for PE She then was noted to have sudden drop in Hgb with apparent hemorrhagic ascites on CT. It was felt to be related to her surgery and pt was given blood transfusion for acute symptomatic blood loss anemia. She is currently on room air. she will ambulate in hallway this AM and if doing well can go home from medical standpt. addendum; with ambulation today on room air o2 sat 95-98% with HR 95-100 (2) Tachycardia Status: Acute Plan: see above (3) DM (diabetes mellitus) Status: Acute Plan: see above (4) HTN (hypertension) Status: Chronic (5) CHERRIE (obstructive sleep apnea) Status: Chronic Plan: uses cpap at home. (6) LFT elevation Status: Chronic Plan: pt noted to have elevated lft on recent ED visit in July. still elevated. fatty liver noted on CT which could be the culprit. pt also on a statin. she can hold it and f/u with her pcp. Dre Dyson MD Sep 16, 2016 09:12
--- NOTE | 2016-09-18 14:54 | MD ---
cc: EVA LEON M.D., KELLY L. MD BROOKS, JEFFREY B. M.D. ADMISSION DATE: 09/12/2016 DISCHARGE DATE: 09/16/2016 PROCEDURES PERFORMED: 09/12/2016: robotic-assisted laparoscopic resection of pelvic mass, right oophorectomy, probable ovarian remnant syndrome, extensive lysis of adhesions. DIAGNOSIS: 1. Pelvic mass. 2. History of severe endometriosis. 3. Status post prior hysterectomy and bilateral salpingo-oophorectomy. HOSPITAL COURSE: She did well in the early postoperative period and tolerate oral intake. Avila catheter out pending voiding, hemodynamically stable. In's and out's 800/719. Labs pending at time of this dictation. PHYSICAL EXAMINATION: VITAL SIGNS: Afebrile, pulse 94-120, respirations 16-18, blood pressure 124-143/58-64, O2 saturations greater than or equal to 97%. GENERAL: Alert, oriented x3. LUNGS: Clear. CARDIOVASCULAR: Regular rate and rhythm. ABDOMEN: Incisions clean and dry. EXTREMITIES: Nontender SCDs intact. ASSESSMENT: Postop day #1 doing well in early postop period. The preliminary findings, steps taken to surgery, preliminary pathology discussed. Activity restrictions reviewed. Questions were answered. She expressed good understanding. PLAN: Anticipate she will be able to be discharged to home today. She is to resume her prior medications. She will have a prescription for Percocet. Our phone number was again provided. She is to contact our office to schedule follow up in two weeks or to call us should she have any questions or problems between now and the time of scheduled appointment. ADDENDUM Amanda Sierra is having some new symptomatology such that her hospital discharge is being put on hold this morning. Her glucose this morning was found to be greater than 300. She takes oral hypoglycemics at home. She has been on insulin sliding scale. She has been receiving IV fluids with 5% dextrose, which has now been changed to normal saline. She is a bit anxious with heart rates intermittently in the 120s. She reported just now recently transient right chest and flank pain, now resolved. She is sweaty and a bit cool to touch on exam Accordingly, further time in evaluation and management is required and I have placed a consult with the hospitalist service to help with these symptoms. Her family are present and they are in the room this morning and are present for exam and discussion. She understands that we will put her discharge on hold until we can evaluate her symptoms, adjust her glucose to ensure that she is asymptomatic. Morning labs are still pending. Questions were asked and answered. They expressed good understanding. MD BALAJI Tang/FRANTZ /6:49 AM /8:15 AM
--- NOTE | 2016-09-19 08:36 | MD ---
cc: CLAYTON EUGENE M.D., CARLOS M.D. MOLPUS, KELLY L. MD JOHN, SINOD BRAITHWAITE, RICHARD L. M.D. ADMISSION DATE: 09/12/2016 DISCHARGE DATE: 09/16/2016 FOLLOWUP TO PREVIOUS DISCHARGE SUMMARY This patient's discharge is being held for further evaluation and management. This note is being added to the previous discharge summary explaining that she remains tachycardiac, short of breath with activity. Her renal function improved, creatinine normalized from 1.62 to 0.65; however, her laboratory changes are notable for anemia. Postop day #1 hemoglobin was 11. Postop day #2 is was 7.5, rechecked latest H&H was 6.7 and 19.9. On exam there is no overt acute abdomen. She is tender consistent with surgery. Some hypoactive bowel sounds. No nausea or vomiting. Nevertheless the source of anemia is not clear. She remains afebrile, pulse 107-120, blood pressure 112-144/55-64, O2 saturations greater than or equal to 93%. She has a CT angiogram pending to evaluate for pulmonary emboli. We are going to add to that a CT of the abdomen and pelvis to assess for hematoma or other source of bleeding. Her heparin has been held. I have spoken with Dr. Garland, cigarette filter inspector, who graciously agreed to oversee her evaluation and management and we are transferring her to the intensive surgical care for further evaluation and management and I have had the opportunity speak to Amanda Gregory and her family to explain these findings. She has labs pending to assess for coagulopathy. She has been typed and cross with intention to transfuse packed red cells as well as fresh frozen plasma. This completes an addendum to discharge summary to clarify the reasons why she was not discharged on for ongoing evaluation and management. Keerthi Guzman MD KM/SSB /4:30 PM /8:13 AM
--- NOTE | 2016-09-20 13:40 | MD ---
cc: CLAYTON EUGENE M.D., CARMEN L. MD MOLPUS,CUONG DYSON,AIYANA Petit M.D. ADMISSION DATE: 09/12/2016 DISCHARGE DATE: 09/16/2016 PROCEDURE September 12, 2016 - Robotic-assisted laparoscopic resection of right pelvic mass (right ovarian remnant syndrome with cystadenoma), extensive lysis of adhesions. HOSPITAL COURSE Her hospital course was complicated by postoperative bleeding with anemia, tachycardia, dehydration, shortness of breath, failure to thrive. Evaluation and management included hydration, transfusion, fresh frozen plasma, vascular radiology assessment for possible embolization with no active arterial bleeding detected, echocardiogram, supportive care. She had transient elevation of her creatinine which corrected with hydration. By postoperative day #4 she was feeling remarkably better. After diuresis yesterday her lungs are clear. She went from requiring 5 liters of oxygen to no oxygen at all with O2 saturations 98-100% on room air with good diuresis. She has had a bowel movement, no nausea or vomiting. She is no longer short of breath. No chest pain, no other new symptomatology. LABORATORY DATA Serial hemoglobins and hematocrits have shown stability after transfusion that in the last 24 hours her hemoglobin has remained stable from 9.7 to between 9.7 and 10.7. PHYSICAL EXAMINATION VITAL SIGNS: This morning she is afebrile, pulse is now between 79 and 89, respirations 18-20, blood pressure 139-166/75-89, O2 saturations greater than previously noted. GENERAL: She is alert and oriented x 3, sitting out of bed. LUNGS: Her respirations are unlabored. She is currently asymptomatic. Lungs are clear. CARDIOVASCULAR: Now with regular rate and rhythm. ABDOMEN: Still nontender, soft. The incisions are clean and dry. There is no ecchymosis. 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 EXTREMITIES: Nontender. No palpable cords. ASSESSMENT Postoperative day #4, now with significant clinical improvement. Findings and as steps taken all reviewed. Questions were asked and answered. She expressed good understanding. Activities and restrictions discussed. PLAN Anticipate she will meet criteria now for discharge today or certainly within 24 hours. I will ask for input and clearance for discharge from Dr. Dyson who is graciously helping to oversee her care as well as ensuring that the mammal keeper feels she is stable for discharge. She is to contact my office to schedule followup within two weeks or to contact us sooner should she have any questions or problems. DISCHARGE MEDICATIONS She is to resume prior medications. She will have a prescription for Percocet for pain. MD BALAJI Tang/SSB /7:56 AM /1:28 PM
== END 2016-09-16 11:19 | disposition home or self-care (01) ==
LOC: HSDC 08:13 → HSDI 17:39 → HOCB 19:44
PROVIDERS: ADMIT Obstetrics & Gynecology Gynecologic Oncology; ATTEND Obstetrics & Gynecology Gynecologic Oncology
DX: D27.0 Benign neoplasm of right ovary (principal); N80.9 Endometriosis, unspecified; R06.02 Shortness of breath; E83.51 Hypocalcemia; E11.9 Type 2 diabetes mellitus without complications; Z90.710 Acquired absence of both cervix and uterus
CPT/HCPCS: 00840; 36012; 36247; 36430; 58662; 71275; 74177; 75736; 75774; 75825; 75831; 76937; 80048; 80053; 82550; 82552; 82948; 83735; 84100; 84484; 85014; 85018; 85025; 85027; 85379; 85384; 85610; 85730; 86850; 86900; 86901; 86920; 86927; 88307; 88331; 93005; 93306; 94150; 97110; 97162; 97530; C1769; C1887; C1894; G0378; G8987; G8988; J0131; J0690; J1170; J1644; J1885; J1940; J2250; J2370; J2405; J3010; J3480; J7030; J7120; P9016; P9017; Q9967; 88305

== ENCOUNTER 2016-09-24 23:16 | Inpatient (IN) | payer OTHER ==
[~2016-09-24 23:16] MED LIST changes: +OXYC1TAB63 PO
[2016-09-25] VITALS (7 sets, daily range): BP systolic 134–178; BP diastolic 65–80; PULSE 73–104; RESP 18–20; TEMP 97.7–99.7; O2SAT 97–100
[2016-09-25] MEDS ORDERED: MAGNESIUM HYDROXIDE SUSP 30 ML CUP PO PRN (00:30)
[2016-09-25] MEDS ORDERED: SODIUM CHLOR 0.9% 1000 ML INJ 1,000 ML IV SCH (00:30)
[2016-09-25] MEDS ORDERED: oxyCODONE/ACETAMINOPHEN 5 MG/325 MG TAB PO PRN (00:30)
[2016-09-25] MEDS ORDERED: ONDANSETRON HCL 4 MG/2 ML VIAL IV PUSH PRN (00:30)
[2016-09-25] MEDS ORDERED: NALOXONE HCL 0.4 MG/ML AMP IV PRN (00:30)
[2016-09-25] MEDS ORDERED: ACETAMINOPHEN 325 MG TAB PO PRN (00:30)
[2016-09-25] MEDS ORDERED: SODIUM CHLORIDE 0.9% FLUSH 10 ML FLUSH IV FLUSH PRN (00:30)
[2016-09-25] MEDS ORDERED: TEMAZEPAM 15 MG CAP PO PRN (00:30)
[2016-09-25] MEDS: NS + KCL 20 MEQ INJ 1,000 ML IV SCH ×2 (00:58→13:15)
[2016-09-25] MEDS: LEVOTHYROXINE SODIUM 25 MCG TAB PO SCH (07:00)
[2016-09-25] MEDS: INSULIN ASPART SUPPLEMENTAL SCALE SQ SCH ×4 (07:00→21:00)
[2016-09-25] MEDS: ONDANSETRON HCL 4 MG/2 ML VIAL IVP PRN ×3 (07:57→21:38)
[2016-09-25] MEDS: DHEA PO SCH (08:03)
[2016-09-25] MEDS: HYDROCHLOROTHIAZIDE 12.5 MG CAP PO SCH (08:03)
[2016-09-25] MEDS: SODIUM CHLORIDE 0.9% FLUSH 10 ML FLUSH IV FLUSH SCH ×2 (08:03→21:00)
[2016-09-25] MEDS: LOSARTAN 50 MG TAB PO SCH (08:03)
[2016-09-25] MEDS: DULoxetine HCl DR 60 MG CAP PO SCH (08:04)
--- NOTE | 2016-09-25 09:56 | RADRPT ---
EXAM DATE/TIME: 09/25/2016 09:40 [facility] COMPARISON: CT PULMONARY ANGIOGRAM, September 24, 2016, 18:21. INDICATIONS : Cough. MEDICAL HISTORY : Hypertension. Hypothyroidism. SURGICAL HISTORY : Cholecystectomy. Hysterectomy.Ovarian mass removal/oophorectomy. ENCOUNTER: Initial ACUITY: 2 days PAIN SCORE: 0/10 LOCATION: Bilateral chest FINDINGS: Frontal and lateral views of the chest demonstrate a normal-sized cardiac silhouette. There is no eff usion, consolidation, or pneumothorax. The bones and soft tissues demonstrate no acute abnormality. C holecystectomy clips are present. CONCLUSION: No acute cardiopulmonary abnormality is identified. Chidi Christian MD on September 25, 2016 at 9:53 Board Certified Radiologist. This report was verified electronically.
--- NOTE | 2016-09-25 09:58 | RADRPT ---
EXAM DATE/TIME: 09/25/2016 09:44 [facility] COMPARISON: CT ABDOMEN & PELVIS W CONTRAST, September 24, 2016, 18:21. ABDOMEN KUB ONLY, August 09, 2016, 8:39. INDICATIONS : Abdominal pain. MEDICAL HISTORY : Hypertension. Hypothyroidism. SURGICAL HISTORY : Cholecystectomy. Hysterectomy.Ovarian mass removal/oophorectomy. ENCOUNTER: Subsequent ACUITY: 2 days PAIN SCORE: 4/10 LOCATION: Bilateral lower quadrant abdomen. FINDINGS: 2 supine frontal views of the abdomen demonstrate abnormally dilated small bowel in the central abdom en and pelvis measuring up to 5.3 cm without significant change from yesterday's CT scan. There is a paucity of distal bowel gas. Cholecystectomy clips are present. There are surgical clips in the left pelvis. No organomegaly is appreciated. There is mild levoscoliosis with degenerative change of the l umbar spine. CONCLUSION: Stable abnormally dilated small bowel in the central abdomen without significant change from yesterda y's CT. Findings remain suspicious for small bowel obstruction. Chidi Christian MD on September 25, 2016 at 9:54 Board Certified Radiologist. This report was verified electronically.
[2016-09-25 12:46] LABS: AUTOMATED NEUTROPHIL # 10.3 TH/MM3 (1.8-7.7); BASOPHIL # 0.1 TH/MM3 (0-0.2); BASOPHIL % 0.6 % (0.0-2.0); EOSINOPHIL # 0.1 TH/MM3 (0-0.4); EOSINOPHIL % 0.5 % (0.0-4.0); HEMATOCRIT 35.9 % (35.0-46.0); HEMO FLAGS DIFF FINAL; LYMPH % 9.1 % (9.0-44.0); LYMPHOCYTE # 1.2 TH/MM3 (1.0-4.8); MEAN CELL VOLUME 84.4 FL (80.0-100.0); MEAN CORPUSCULAR HEMOGLOBIN 29.2 PG (27.0-34.0); MEAN CORPUSCULAR HGB CONC 34.6 % (32.0-36.0); MONO % 7.9 % (0.0-8.0); NEUT % 81.9 % (16.0-70.0); PLATELET COUNT 550 TH/MM3 (150-450); RED BLOOD COUNT 4.25 MIL/MM3 (4.00-5.30); RED CELL DISTRIBUTION WIDTH 15.9 % (11.6-17.2); WHITE BLOOD COUNT 12.6 TH/MM3 (4.0-11.0)
[2016-09-25 13:13] LABS: BICARBONATE 24.6 MEQ/L (21.0-32.0)
--- NOTE | 2016-09-25 16:28 | HHI.HP ---
HPI Service [facility] Hospitalists Primary Care Physician Unknown Admission Diagnosis ILEUS Chief Complaint: Abdominal pain Travel History International Travel<30 Days: No Contact w/Intl Traveler <30 Da: No Traveled to Known Affected Are: No History of Present Illness Pt is a pleasant 61 y/o F with h/o DM2, HTN, and CHERRIE who underwent surgery approximately 2 weeks ago for right ovarian mass. Pathology was benign. Patient's postoperative hospitalization course was complicated by anemia requiring transfusion. Patient was ultimately discharged to home on 09/16/16. Patient presented to the [facility] ER last night with complaint of abdominal pain, tachycardia, and diaphoresis. ER physician noted the patient was quite anxious. Patient underwent CTA of the chest as an outpatient which was negative for pulmonary embolism. In the ER, patient underwent CT of the abdomen which showed Development of mild small bowel dilatation with air-fluid levels and distal decompression the terminal ileum most characteristic of an early or partial small bowel obstruction with some mildly thickened and angulated loop seen in the lower abdomen and pelvis. Patient denies nausea or vomiting. KUB obtained (09/25/16) showed continued bowel dilation. Pt reports that she was been nauseated for the last 2 days but has had NO vomiting. Pt reports that she had a small bowel movement last night. Pt does NOT appear to be in pain and is ambulating in the hallways with her . Review of Systems Constitutional: DENIES: Diaphoretic episodes, Fatigue, Fever, Weight gain, Weight loss, Chills, Dizziness, Change in appetite, Night Sweats Endocrine: DENIES: Heat/cold intolerance, Polydipsia, Polyuria, Polyphagia Eyes: DENIES: Blurred vision, Diplopia, Eye inflammation, Eye pain, Vision loss , Photosensitivity, Double Vision Ears, nose, mouth, throat: DENIES: Tinnitus, Hearing loss, Vertigo, Nasal discharge, Oral lesions, Throat pain, Hoarseness, Ear Pain, Running Nose, Epistaxis, Sinus Pain, Toothache, Odynophagia Respiratory: DENIES: Apneas, Cough, Snoring, Wheezing, Hemoptysis, Sputum production, Shortness of breath Cardiovascular: DENIES: Chest pain, Palpitations, Syncope, Dyspnea on Exertion , PND, Lower Extremity Edema, Orthopnea, Claudication Gastrointestinal: COMPLAINS OF: Abdominal pain, DENIES: Black stools, Bloody stools, BRB per rectum, Constipation, Diarrhea, GERD, Nausea, Reflux, Vomiting, Difficulty Swallowing, Anorexia, See HPI Genitourinary: DENIES: Urinary frequency, Urinary incontinence, Urgency, Hematuria, Dysuria, Nocturia Musculoskeletal: DENIES: Joint pain, Muscle aches, Stiffness, Joint Swelling, Back pain, Neck pain Integumentary: DENIES: Abnormal pigmentation, Pruritus, Rash, Nail changes, Breast masses, Breast skin changes, Nipple discharge Hematologic/lymphatic: DENIES: Bruising, Lymphadenopathy Immunologic/allergic: DENIES: Eczema, Urticaria Neurologic: DENIES: Abnormal gait, Headache, Localized weakness, Paresthesias, Seizures, Speech Problems, Tremor, Poor Balance Psychiatric: DENIES: Anxiety, Confusion, Mood changes, Depression, Hallucinations, Agitation, Suicidal Ideation, Homicidal Ideation, Delusions, History of Bipolar, History of Schizophrenia Past Family Social History Past Medical History dm 2 hypothyroidism peripheral neuropathy cherrie on cpap right ovary mass. fatty liver nephrolithiasis elevated lft hyperlipidemia Past Surgical History 1) hysterectomy 2) excision of right ovarian remnant 2 weeks ago, benign pathology Reported Medications Reported Meds & Active Scripts Active Oxycodone-Acetaminophen 5-325 mg Tab 1 Tab PO Q4H PRN Zofran (Ondansetron HCl) 4 Mg Tab 4 Mg PO Q6HR PRN Reported Vitamin D-3 (Cholecalciferol) 2,000 Unit Tab 1 Tab PO DAILY Fish Oil ([place]-3 Fatty Acids) 300 Mg Capsule Unknown Dose PO DAILY Dhea (Prasterone (DHEA)) 50 Mg Cap 1 Cap PO DAILY Vitamin E 200 Unit Cap 400 Units PO DAILY Align (Lactobacillus Rhamnosus (GG)) 4 Mg Cap 4 Mg PO DAILY Trazodone (Trazodone HCl) 100 Mg Tablet 100 Mg PO HS Atorvastatin (Atorvastatin Calcium) 20 Mg Tab 20 Mg PO HS Duloxetine DR (Duloxetine HCl) 60 Mg Capdr 60 Mg PO DAILY Metformin (Metformin HCl) 850 Mg Tab 850 Mg PO BIDPC With meals Losartan-Hydrochlorothiazide 50-12.5 Mg Tab 1 Tab PO DAILY Levothyroxine (Levothyroxine Sodium) 25 Mcg Tab 25 Mcg PO DAILY Allergies: Coded Allergies: Demerol (Verified Adverse Reaction, Intermediate, N/V, 09/12/16) Family History Noncontributory Social History - No tobacco - No alcohol - No illicit street drugs Physical Exam Vital Signs Vital Signs Date Time Temp Pulse Resp B/P Pulse Ox O2 Delivery O2 Flow Rate FiO2 09/25/16 16:05 98.7 98 20 176/80 98 09/25/16 11:58 98.4 94 18 169/80 97 09/25/16 07:42 97.7 104 20 168/80 97 09/25/16 04:04 98.4 73 18 134/76 98 09/25/16 00:00 99.7 101 20 178/78 100 Physical Exam GENERAL: This is a well-nourished, well-developed patient, in no apparent distress. SKIN: No rashes, ecchymoses or lesions. Cool and dry. HEAD: Atraumatic. Normocephalic. No temporal or scalp tenderness. EYES: Pupils equal round and reactive. Extraocular motions intact. No scleral icterus. No injection or drainage. ENT: Nose without bleeding, purulent drainage or septal hematoma. Throat without erythema, tonsillar hypertrophy or exudate. Uvula midline. Airway patent. NECK: Trachea midline. No JVD or lymphadenopathy. Supple, nontender, no meningeal signs. CARDIOVASCULAR: Regular rate and rhythm without murmurs, gallops, or rubs. RESPIRATORY: Clear to auscultation. Breath sounds equal bilaterally. No wheezes , rales, or rhonchi. GASTROINTESTINAL: Abdomen soft, non-tender, nondistended. No hepato-splenomegaly , or palpable masses. No guarding. decreased BS x 4 MUSCULOSKELETAL: Extremities without clubbing, cyanosis, or edema. No joint tenderness, effusion, or edema noted. No calf tenderness. Negative Homans sign bilaterally. NEUROLOGICAL: Awake and alert. Cranial nerves II through XII intact. Motor and sensory grossly within normal limits. Five out of 5 muscle strength in all muscle groups. Normal speech. Laboratory Laboratory Tests Test 09/25/16 12:22 White Blood Count 12.6 Red Blood Count 4.25 Hemoglobin 12.4 Hematocrit 35.9 Mean Corpuscular Volume 84.4 Mean Corpuscular Hemoglobin 29.2 Mean Corpuscular Hemoglobin 34.6 Concent Red Cell Distribution Width 15.9 Platelet Count 550 Mean Platelet Volume 7.1 Neutrophils (%) (Auto) 81.9 Lymphocytes (%) (Auto) 9.1 Monocytes (%) (Auto) 7.9 Eosinophils (%) (Auto) 0.5 Basophils (%) (Auto) 0.6 Neutrophils # (Auto) 10.3 Lymphocytes # (Auto) 1.2 Monocytes # (Auto) 1.0 Eosinophils # (Auto) 0.1 Basophils # (Auto) 0.1 CBC Comment DIFF FINAL Differential Comment Sodium Level 138 Potassium Level 4.0 Chloride Level 103 Carbon Dioxide Level 24.6 Anion Gap 10 Blood Urea Nitrogen 17 Creatinine 0.61 Estimat Glomerular Filtration 100 Rate Random Glucose 124 Calcium Level 9.5 Result Diagram: 09/25/16 1222 09/25/16 1222 Imaging Last Impressions Abdomen X-Ray 09/25/16 0800 Signed Impressions: Service Date/Time: Sunday, September 25, 2016 09:44 - CONCLUSION: Stable abnormally dilated small bowel in the central abdomen without significant change from yesterday's CT. Findings remain suspicious for small bowel obstruction. Chidi Christian MD Chest X-Ray 09/25/16 0024 Signed Impressions: Service Date/Time: Sunday, September 25, 2016 09:40 - CONCLUSION: No acute cardiopulmonary abnormality is identified. Chidi Christian MD Septic Shock Reassessment Heart: Regular rate and rhythm Lungs: Clear Skin: Warm Peripheral Pulses: Bounding Right Radial Bounding Left Radial Bounding Right Popliteal Bounding Left Popliteal Bounding Right Dorsalis Pedis Bounding Left Dorsalis Pedis Bounding Right Posterior Tibial Bounding Left Posterior Tibial Capillary Refill: Brisk Assessment and Plan Problem List: (1) Abdominal pain Status: Acute Plan: - Small bowel obstruction versus ileus - CT abd/pelvis (09/24/16) --> dilated loops of bowel - KUB (09/25/16) --> dilated loops of bowel - NPO - IVFs - consult Dr. Guzman - Radiographical studies reviewed with general surgery, Dr. Benitez. Does not appear to be any urgent intra-abdominal pathology requiring surgical intervention today. - Continue conservative management and await Dr. Guzman (2) DM (diabetes mellitus) Status: Chronic Plan: - SSI (3) HTN (hypertension) Status: Chronic Plan: - resume home mediations Physician Certification 2 Midnight Certification Type: Admission for Inpatient Services Order for Inpatient Services The services are ordered in accordance with Medicare regulations or non- Medicare payer requirements, as applicable. In the case of services not specified as inpatient-only, they are appropriately provided as inpatient services in accordance with the 2-midnight benchmark. Estimated LOS (days): 3 3 days is the estimated time the patient will need to remain in the hospital, assuming treatment plan goals are met and no additional complications. Post-Hospital Plan: Home Problem Qualifiers (1) Abdominal pain: Qualified Code: R10.9 - Abdominal pain, unspecified abdominal location (2) DM (diabetes mellitus): (3) HTN (hypertension): Qualified Code: I10 - Essential hypertension Tommy Paez DO Sep 25, 2016 16:28
[2016-09-25] MEDS: ENALAPRILAT 1.25 MG/ML VIAL IV PRN (19:10)
[2016-09-25] MEDS: traZODone HCL 100 MG TAB PO SCH (21:00)
[2016-09-25] MEDS: ATORVASTATIN 20 MG TAB PO SCH (21:21)
[2016-09-26] MEDS: NS + KCL 20 MEQ INJ 1,000 ML IV SCH ×2 (01:38→13:34)
[2016-09-26 03:21] VITALS: BP 173/79; PULSE 92; RESP 18; TEMP 98.7; O2SAT 97
[2016-09-26] MEDS: LEVOTHYROXINE SODIUM 25 MCG TAB PO SCH (06:18)
[2016-09-26] MEDS: INSULIN ASPART SUPPLEMENTAL SCALE SQ SCH ×4 (07:00→21:00)
[2016-09-26] MEDS: ENALAPRILAT 1.25 MG/ML VIAL IV PRN (07:36)
[2016-09-26 08:11] VITALS: BP 145/72; PULSE 89; RESP 21; TEMP 98.7; O2SAT 98
--- NOTE | 2016-09-26 08:37 | RADRPT ---
EXAM DATE/TIME: 09/26/2016 08:20 [facility] COMPARISON: ABDOMEN KUB ONLY, September 25, 2016, 9:44. INDICATIONS : Nausea and mild constipation for 3 days. MEDICAL HISTORY : Hypertension. Hypothyroidism SURGICAL HISTORY : Cholecystectomy. Hysterectomy.Ovarian mass removal/oophorectomy ENCOUNTER: Subsequent ACUITY: 3 days PAIN SCORE: 2/10 LOCATION: Abdomen. FINDINGS: There is persistent distention of small bowel loops with little change from prior exam. Surgical clip s noted in the right upper quadrant. Sutures or blake in the left pelvis. Regional skeleton is stab le. CONCLUSION: No significant change Chidi Alonzo MD on September 26, 2016 at 8:34 Board Certified Radiologist. This report was verified electronically.
--- NOTE | 2016-09-26 08:37 | PD.CONS ---
History of Present Illness Service cold patcher/onc Consult Requested By Dr. Paez Reason for Consult SBO/Ileus Primary Care Physician Unknown Diagnoses: (1) Abdominal pain (2) Partial obstruction of small intestine History of Present Illness This is a 61 year old who is s/p robotic assisted laparoscopic resection of pelvic mass and lysis of adhesions back on 09/12/16. She tells me that she was feeling well at home until Monday when she started having abdominal pain. She states she laid down to rest but the pain continued so she presented to the [place] ER for evaluation. Ct was obtained that shown loops of dilated bowel suggestive of partial SBO/Ileus. She was brought to [place] ER for further evaluation. Mrs. Sierra is ambulating the halls and states that her pain has improved but when it occurs it is in the middle of her abdomen, cramping type of pain. She denies any vomiting but has had some nausea and burping. She denies flatus. She had a small BM in the [place] ER, none since. She has been eating ice chips and taking her blood pressure medication without any vomiting. KUB completed at [place] on 09/25/16 shown stable small partial bowel/illus. She is ambulating the halls in no pain at this time. Dr. Paez discussed with Dr. Benitez who felt like this did not need surgical intervention at this time. Review of Systems Gastrointestinal: COMPLAINS OF: Abdominal pain, Nausea Except as stated in HPI: all other systems reviewed are Neg Past Family Social History Allergies: Coded Allergies: Demerol (Verified Adverse Reaction, Intermediate, N/V, 09/12/16) Past Medical History DM type 2 hypothyroid peripheral neuropathy CHERRIE uses CPAP hyperlipidemia elevated LFT nephrolithiasis fatty liver Past Surgical History s/p RA lap resection of pelvic mass and lysis of adhesions hysterectomy Reported Medications Percocet 5/325 Zofran 4 mg Active Ordered Medications Current Medications Sodium Chloride (NS 1000 ml Inj) 1,000 ml @ 100 mls/hr Q10H IV Last administered on 09/25/16 00:34; Start 09/25/16 at 00:30; Stop 09/25/16 at 00:43; Status DC Ondansetron HCl (Zofran Inj) 4 mg Q6H PRN IV PUSH NAUSEA OR VOMITING Last administered on 09/25/16 00:34; Start 09/25/16 at 00:30; Stop 09/25/16 at 00:43; Status DC Sodium Chloride (NS Flush) 2 ml UNSCH PRN IV FLUSH FLUSH AFTER USING IV ACCESS Last administered on 09/26/16 07:36; Start 09/25/16 at 00:30 Sodium Chloride (NS Flush) 2 ml BID IV FLUSH ; Start 09/25/16 at 09:00 Acetaminophen (Tylenol) 650 mg Q4H PRN PO TEMP > 100.4; Start 09/25/16 at 00:30 Ondansetron HCl (Zofran Inj) 4 mg Q6H PRN IVP NAUSEA OR VOMITING Last administered on 09/25/16 21:38; Start 09/25/16 at 00:30 Temazepam (Restoril) 15 mg HS PRN PO INSOMNIA; Start 09/25/16 at 00:30 Naloxone HCl (Narcan Inj) 0.4 mg UNSCH PRN IV SEE LABEL COMMENTS; Start at 00:30 Magnesium Hydroxide 30 ml 30 ml Q12H PRN PO MILD - MODERATE CONSTIPATION; Start 09/25/16 at 00:30 Potassium Chloride/Sodium Chloride (NS + KCl 20 Meq Inj) 1,000 ml @ 84 mls/hr [id number] IV Last administered on 09/26/16 01:38; Start 09/25/16 at 00:30 Insulin Aspart (NovoLOG SUPPLEMENTAL SCALE) 1 ACHS SLIDING SCALE SQ ; Start 09/25/16 at 07:00 Atorvastatin Calcium (Lipitor) 20 mg HS PO Last administered on 09/25/16 21:21 ; Start 09/25/16 at 21:00 Duloxetine HCl (Cymbalta Dr) 60 mg DAILY PO ; Start 09/25/16 at 09:00 Levothyroxine Sodium (Synthroid) 25 mcg DAILY@07 PO Last administered on 06:18; Start 09/25/16 at 07:00 Oxycodone/ Acetaminophen (Percocet 5-325 Mg) 1 tab Q4H PRN PO PAIN SCALE 1 TO 5; Start 09/25/16 at 00:30 Losartan Potassium (Cozaar) 50 mg DAILY PO BPM; Start 09/25/16 at 09:00 Patient Own Medication PT OWN MED: PRASTER... DAILY PO ; Start 09/25/16 at 09:00 Trazodone HCl (Desyrel) 100 mg HS PO ; Start 09/25/16 at 21:00 Hydrochlorothiazide (Microzide) 12.5 mg DAILY PO ; Start 09/25/16 at 09:00 Enalaprilat (Vasotec Inj) 1.25 mg Q6H PRN IV sbp above 160 Last administered on 09/26/16t 07:36; Start 09/25/16 at 17:00 Social History denies tobacco denies alcohol denies illicit drug use Physical Exam Vital Signs Vital Signs Date Time Temp Pulse Resp B/P Pulse Ox O2 Delivery O2 Flow Rate FiO2 09/26/16 03:21 98.7 92 18 173/79 97 09/25/16 23:33 98.0 89 18 150/70 97 09/25/16 20:21 98.8 98 18 160/65 97 09/25/16 16:05 98.7 98 20 176/80 98 09/25/16 11:58 98.4 94 18 169/80 97 09/25/16 07:42 97.7 104 20 168/80 97 Physical Exam GENERAL: This is a well-nourished, well-developed patient, in no apparent distress. SKIN: No rashes, ecchymoses or lesions. Cool and dry. HEAD: Atraumatic. Normocephalic. No temporal or scalp tenderness. EYES: Pupils equal round and reactive. Extraocular motions intact. NECK: Trachea midline. CARDIOVASCULAR: Regular rate and rhythm without murmurs, gallops, or rubs. RESPIRATORY: Clear to auscultation. Breath sounds equal bilaterally. No wheezes , rales, or rhonchi. GASTROINTESTINAL: Abdomen soft, non tender and non distended, decreased BS x 4 MUSCULOSKELETAL: Extremities without clubbing, cyanosis, or edema. pt ambulating around the ER NEUROLOGICAL: Awake and alert. Laboratory Laboratory Tests Test 09/25/16 12:22 White Blood Count 12.6 Red Blood Count 4.25 Hemoglobin 12.4 Hematocrit 35.9 Mean Corpuscular Volume 84.4 Mean Corpuscular Hemoglobin 29.2 Mean Corpuscular Hemoglobin 34.6 Concent Red Cell Distribution Width 15.9 Platelet Count 550 Mean Platelet Volume 7.1 Neutrophils (%) (Auto) 81.9 Lymphocytes (%) (Auto) 9.1 Monocytes (%) (Auto) 7.9 Eosinophils (%) (Auto) 0.5 Basophils (%) (Auto) 0.6 Neutrophils # (Auto) 10.3 Lymphocytes # (Auto) 1.2 Monocytes # (Auto) 1.0 Eosinophils # (Auto) 0.1 Basophils # (Auto) 0.1 CBC Comment DIFF FINAL Differential Comment Sodium Level 138 Potassium Level 4.0 Chloride Level 103 Carbon Dioxide Level 24.6 Anion Gap 10 Blood Urea Nitrogen 17 Creatinine 0.61 Estimat Glomerular Filtration 100 Rate Random Glucose 124 Calcium Level 9.5 Result Diagram: 09/25/16 1222 09/25/16 1222 Imaging Last 72 hours Impressions Abdomen X-Ray 09/25/16 0800 Signed Impressions: Service Date/Time: Sunday, September 25, 2016 09:44 - CONCLUSION: Stable abnormally dilated small bowel in the central abdomen without significant change from yesterday's CT. Findings remain suspicious for small bowel obstruction. Chidi Christian MD Chest X-Ray 09/25/16 0024 Signed Impressions: Service Date/Time: Sunday, September 25, 2016 09:40 - CONCLUSION: No acute cardiopulmonary abnormality is identified. Chidi Christian MD Assessment and Plan Problem List: (1) Partial obstruction of small intestine Status: Acute Plan: PT is NPO except meds no vomiting no nausea at this time pt ambulating Dr. Benitez felt no surgery needed at this time KUB planned for this morning If pt should start to have N/V then NG tub to be placed to LIWS encourage continue ambulation continue NPO except meds at this time based on KUB possible to advance diet to liquids per med team...thank you for care in this patient (2) Abdominal pain Status: Acute Plan: r/t ileus supportive care Problem Qualifiers (1) Abdominal pain: Qualified Code: R10.9 - Abdominal pain, unspecified abdominal location Carlos Aviles Sep 26, 2016 08:37
[2016-09-26] MEDS: SODIUM CHLORIDE 0.9% FLUSH 10 ML FLUSH IV FLUSH SCH ×2 (09:00→21:43)
[2016-09-26] MEDS: DHEA PO SCH (09:00)
[2016-09-26] MEDS: HYDROCHLOROTHIAZIDE 12.5 MG CAP PO SCH (09:34)
[2016-09-26] MEDS: LOSARTAN 50 MG TAB PO SCH (09:34)
[2016-09-26] MEDS: DULoxetine HCl DR 60 MG CAP PO SCH (09:34)
--- NOTE | 2016-09-26 09:37 | HHI.PR ---
Subjective Remarks Pt passed a small amount of gas today No BM Abd pain is less No nausea or vomiting Pt is NPO on IVF Objective Vitals Vital Signs Date Time Temp Pulse Resp B/P Pulse Ox O2 Delivery O2 Flow Rate FiO2 09/26/16 08:11 98.7 89 21 145/72 98 09/26/16 03:21 98.7 92 18 173/79 97 09/25/16 23:33 98.0 89 18 150/70 97 09/25/16 20:21 98.8 98 18 160/65 97 09/25/16 16:05 98.7 98 20 176/80 98 09/25/16 11:58 98.4 94 18 169/80 97 Result Diagram: 09/25/16 1222 09/25/16 1222 Other Results Laboratory Tests Test 09/25/16 12:22 White Blood Count 12.6 TH/MM3 Red Blood Count 4.25 MIL/MM3 Hemoglobin 12.4 GM/DL Hematocrit 35.9 % Mean Corpuscular Volume 84.4 FL Mean Corpuscular Hemoglobin 29.2 PG Mean Corpuscular Hemoglobin 34.6 % Concent Red Cell Distribution Width 15.9 % Platelet Count 550 TH/MM3 Mean Platelet Volume 7.1 FL Neutrophils (%) (Auto) 81.9 % Lymphocytes (%) (Auto) 9.1 % Monocytes (%) (Auto) 7.9 % Eosinophils (%) (Auto) 0.5 % Basophils (%) (Auto) 0.6 % Neutrophils # (Auto) 10.3 TH/MM3 Lymphocytes # (Auto) 1.2 TH/MM3 Monocytes # (Auto) 1.0 TH/MM3 Eosinophils # (Auto) 0.1 TH/MM3 Basophils # (Auto) 0.1 TH/MM3 CBC Comment DIFF FINAL Differential Comment Sodium Level 138 MEQ/L Potassium Level 4.0 MEQ/L Chloride Level 103 MEQ/L Carbon Dioxide Level 24.6 MEQ/L Anion Gap 10 MEQ/L Blood Urea Nitrogen 17 MG/DL Creatinine 0.61 MG/DL Estimat Glomerular Filtration 100 ML/MIN Rate Random Glucose 124 MG/DL Calcium Level 9.5 MG/DL Imaging Last Impressions Abdomen X-Ray 09/25/16 0800 Signed Impressions: Service Date/Time: Sunday, September 25, 2016 09:44 - CONCLUSION: Stable abnormally dilated small bowel in the central abdomen without significant change from yesterday's CT. Findings remain suspicious for small bowel obstruction. Chidi Christian MD Chest X-Ray 09/25/16 0024 Signed Impressions: Service Date/Time: Sunday, September 25, 2016 09:40 - CONCLUSION: No acute cardiopulmonary abnormality is identified. Chidi Christian MD Objective Remarks General: NAD, AAOx3 Chest: CTA Cardiac:Regular Abd: +BS, soft mildly distended, nontender Ext: No edema A/P Problem List: (1) Abdominal pain Status: Acute Plan: - Pt underwent robotic assisted laparoscopic resection of pelvic mass and lysis of adhesions back on 09/12/16. - Her post-op course was complicated by sudden drop in Hgb with apparent hemorrhagic ascites on CT. It was felt to be related to her surgery and pt was given blood transfusion for acute symptomatic blood loss anemia. - She was reportedly recovering well at home until 09/24/16, when she started having abdominal pain which persisted and so she presented to the [place] ER for evaluation. CT was obtained that shown loops of dilated bowel suggestive of partial SBO/Ileus. She was brought to [place] ER for further evaluation. - KUB (09/25/16) --> dilated loops of bowel - KUB (09/26/16) --> Slight improvement compared to images on 09/25 - NPO - IVFs - Dr. Guzman following. - Continue conservative management - Encourage ambulation (2) DM (diabetes mellitus) Status: Chronic Plan: - SSI (3) HTN (hypertension) Status: Chronic Plan: - resume home mediations Assessment and Plan Patient examined. Assessment and plan formulated with Ninoska Romero PA-C. I agree with the above. psbo. liquid stools today. no vomiting.; advance to clears then full liquid if tolerated. ambulate. Problem Qualifiers (1) Abdominal pain: Qualified Code: R10.9 - Abdominal pain, unspecified abdominal location (2) DM (diabetes mellitus): (3) HTN (hypertension): Qualified Code: I10 - Essential hypertension Ninoska Romero Sep 26, 2016 09:37 Dre Dyson MD Sep 26, 2016 11:32
[2016-09-26 11:47] VITALS: BP 140/73; PULSE 86; RESP 21; TEMP 98.7; O2SAT 98
[2016-09-26] MEDS: POLYETHYLENE GLYCOL 17 GM PKG PO SCH ×2 (13:33→21:43)
[2016-09-26 16:17] VITALS: BP 148/68; PULSE 93; RESP 20; TEMP 97.5; O2SAT 97
[2016-09-26] MEDS: traZODone HCL 100 MG TAB PO SCH (21:00)
[2016-09-26] MEDS: ATORVASTATIN 20 MG TAB PO SCH (21:43)
[2016-09-27] VITALS (7 sets, daily range): BP systolic 163–189; BP diastolic 73–86; PULSE 80–106; RESP 16–24; TEMP 97.6–98.7; O2SAT 98–100
[2016-09-27] MEDS: NS + KCL 20 MEQ INJ 1,000 ML IV SCH (02:02)
--- NOTE | 2016-09-27 06:29 | RADRPT ---
EXAM DATE/TIME: 09/27/2016 06:00 [facility] COMPARISON: ABDOMEN KUB ONLY, September 26, 2016, 8:20. INDICATIONS : Ileus. MEDICAL HISTORY : Hypertension. Hypothyroidism SURGICAL HISTORY : Cholecystectomy. Hysterectomy.Ovarian mass removal/oophorectomy ENCOUNTER: Subsequent ACUITY: 4 - 6 days PAIN SCORE: 0/10 LOCATION: Bilateral abdomen FINDINGS: Dilated loops of small intestine are again seen over the mid to right lower abdomen, stable to minima lly decreased in prominence. CONCLUSION: Persistent bowel dilatation, perhaps slightly decreased from prior. Ramiro Ramirez MD on September 27, 2016 at 6:27 Board Certified Radiologist. This report was verified electronically.
[2016-09-27] MEDS: LEVOTHYROXINE SODIUM 25 MCG TAB PO SCH (06:33)
[2016-09-27] MEDS: INSULIN ASPART SUPPLEMENTAL SCALE SQ SCH ×4 (07:00→21:00)
[2016-09-27] MEDS: SODIUM CHLORIDE 0.9% FLUSH 10 ML FLUSH IV FLUSH SCH ×2 (09:00→21:00)
[2016-09-27] MEDS: DHEA PO SCH (09:00)
[2016-09-27] MEDS: DULoxetine HCl DR 60 MG CAP PO SCH (09:01)
[2016-09-27] MEDS: LOSARTAN 50 MG TAB PO SCH (09:01)
[2016-09-27] MEDS: HYDROCHLOROTHIAZIDE 12.5 MG CAP PO SCH (09:01)
[2016-09-27] MEDS: POLYETHYLENE GLYCOL 17 GM PKG PO SCH ×2 (09:01→21:30)
--- NOTE | 2016-09-27 09:10 | HHI.PR ---
Subjective Remarks Pt had two loose/watery stools yesterday afternoon but none since then Not much flatus Pt tolerated clear liquids last night Objective Vitals Vital Signs Date Time Temp Pulse Resp B/P Pulse Ox O2 Delivery O2 Flow Rate FiO2 09/27/16 08:40 97.6 82 16 165/75 98 09/27/16 04:03 98.7 103 20 189/86 99 09/27/16 00:42 98.7 106 20 173/73 100 09/26/16 16:17 97.5 93 20 148/68 97 09/26/16 11:47 98.7 86 21 140/73 98 09/26/16 09/26/16 09/27/16 14:59 22:59 06:59 Intake Total 2894 ml 355 ml 1100 ml Balance 2894 ml 355 ml 1100 ml Intake Oral 250 ml IV Total 2894 ml 355 ml 850 ml # Voids 2 4 # Bowel Movements 3 Result Diagram: 09/25/16 1222 09/25/16 1222 Other Results Laboratory Tests Test 09/25/16 12:22 White Blood Count 12.6 TH/MM3 Red Blood Count 4.25 MIL/MM3 Hemoglobin 12.4 GM/DL Hematocrit 35.9 % Mean Corpuscular Volume 84.4 FL Mean Corpuscular Hemoglobin 29.2 PG Mean Corpuscular Hemoglobin 34.6 % Concent Red Cell Distribution Width 15.9 % Platelet Count 550 TH/MM3 Mean Platelet Volume 7.1 FL Neutrophils (%) (Auto) 81.9 % Lymphocytes (%) (Auto) 9.1 % Monocytes (%) (Auto) 7.9 % Eosinophils (%) (Auto) 0.5 % Basophils (%) (Auto) 0.6 % Neutrophils # (Auto) 10.3 TH/MM3 Lymphocytes # (Auto) 1.2 TH/MM3 Monocytes # (Auto) 1.0 TH/MM3 Eosinophils # (Auto) 0.1 TH/MM3 Basophils # (Auto) 0.1 TH/MM3 CBC Comment DIFF FINAL Differential Comment Sodium Level 138 MEQ/L Potassium Level 4.0 MEQ/L Chloride Level 103 MEQ/L Carbon Dioxide Level 24.6 MEQ/L Anion Gap 10 MEQ/L Blood Urea Nitrogen 17 MG/DL Creatinine 0.61 MG/DL Estimat Glomerular Filtration 100 ML/MIN Rate Random Glucose 124 MG/DL Calcium Level 9.5 MG/DL Imaging Last Impressions Abdomen X-Ray 8/8/17 0600 Signed Impressions: Service Date/Time: Tuesday, September 27, 2016 06:00 - CONCLUSION: Persistent bowel dilatation, perhaps slightly decreased from prior. Ramiro Ramirez MD Chest X-Ray 09/25/16 0024 Signed Impressions: Service Date/Time: Sunday, September 25, 2016 09:40 - CONCLUSION: No acute cardiopulmonary abnormality is identified. Chidi Christian MD Last Impressions Abdomen X-Ray 09/25/16 0800 Signed Impressions: Service Date/Time: Sunday, September 25, 2016 09:44 - CONCLUSION: Stable abnormally dilated small bowel in the central abdomen without significant change from yesterday's CT. Findings remain suspicious for small bowel obstruction. Chidi Christina MD Chest X-Ray 09/25/16 0024 Signed Impressions: Service Date/Time: Sunday, September 25, 2016 09:40 - CONCLUSION: No acute cardiopulmonary abnormality is identified. Chidi Christian MD Objective Remarks General: NAD, AAOx3 Chest: CTA Cardiac:Regular Abd: Decreased BS, semi-firm, mildly distended, nontender Ext: No edema A/P Problem List: (1) Abdominal pain Status: Acute Plan: - Pt underwent robotic assisted laparoscopic resection of pelvic mass and lysis of adhesions back on 09/12/16. - Her post-op course was complicated by sudden drop in Hgb with apparent hemorrhagic ascites on CT. It was felt to be related to her surgery and pt was given blood transfusion for acute symptomatic blood loss anemia. - She was reportedly recovering well at home until 09/24/16, when she started having abdominal pain which persisted and so she presented to the [place] [facility] for evaluation. CT was obtained that shown loops of dilated bowel suggestive of partial SBO/Ileus. She was brought to [place] [facility] for further evaluation. - KUB (09/25/16) --> dilated loops of bowel - KUB (09/26/16) --> Slight improvement compared to images on 09/25 - KUB (09/27/16) --> Persistent bowel dilatation, perhaps slightly decreased from prior. - Pt tolerating clear liquids, will advance to full liquids today - Stop IVFs - Dr. Guzman following. - Continue conservative management - Encourage ambulation (2) DM (diabetes mellitus) Status: Chronic Plan: - SSI (3) HTN (hypertension) Status: Chronic Plan: - resume home mediations Assessment and Plan Patient examined. Assessment and plan formulated with Ninoska Romero PA-C. I agree with the above. psbo/ileus...improving slowly bowels moving. ivf. laxatives. ambulate advanced diet Problem Qualifiers (1) Abdominal pain: Qualified Code: R10.9 - Abdominal pain, unspecified abdominal location (2) DM (diabetes mellitus): (3) HTN (hypertension): Qualified Code: I10 - Essential hypertension Ninoska Romero Sep 27, 2016 09:10 Dre Dyson MD Sep 27, 2016 12:03
[2016-09-27] MEDS: ENALAPRILAT 1.25 MG/ML VIAL IV PRN (12:57)
[2016-09-27] MEDS: ONDANSETRON HCL 4 MG/2 ML VIAL IVP PRN ×2 (15:12→22:11)
--- NOTE | 2016-09-27 15:59 | MB ---
cc: EVA LEON M.D., EDWARD B. DO MOLPUS, KELLY L. MD BROOKS, JEFFREY B. M.D. BRAITHWAITE, RICHARD L. M.D. DATE OF CONSULTATION 09/26/[address] Harlan Paez. REASON FOR CONSULTATION 1. Postoperative known to us. 2. Partial small-bowel obstruction versus ileus. She is seen. Her findings are reviewed. She is examined by me and counseled by me in conjunction with our nurse practitioner (Carlos Aviles) I agree with her findings, assessment and plan of care. 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 She had a history of severe endometriosis and by history had had a hysterectomy and bilateral salpingo-oophorectomy. Nevertheless, there was residual ovarian tissue present and a mass arising from that ovary which was removed. Her postoperative course was notable for some issues including poorly controlled glucose, tachycardia, anemia, intraperitoneal bleeding, shortness of breath, fluid overload, all of which were resolved with appropriate intervention. She had no evidence of cardiac or pulmonary event. She improved to the point where she met criteria for discharge to home. She has been doing well at home until the day prior to admission where she reports some abdominal pain. She also felt a sense of shortness of breath and felt that her heart was racing. She presented to the [place] emergency room from their evaluation and was transferred to [facility]. She has been excluded for pulmonary emboli as her CT angiogram was negative and her preliminary cardiac enzymes are normal. She is seen in the emergency room where she is perpetually walking around with her sister, doing laps around the [place]. She has not had any emesis. She reports a loose bowel movement followed by another bowel movement since she has been in the emergency room. Her abdominal pain is intermittent but at the present time she denies any pain. She is hemodynamically stable. Objectives suggest that she was a bit dehydrated prior to admission as she appeared to be hemoconcentrated. Her hemoglobin was 14.1, after hydration 12.4, platelet count was 711, after hydration 550, creatinine 0.9, after hydration 0.61. The glucoses shows better control at 124. Initial troponin less than 0.02 PAST MEDICAL HISTORY/PAST SURGICAL HISTORY/MEDICATIONS/ALLERGIES/ FAMILY HISTORY Are all as reviewed in the chart and as documented. No additional information was elicited, nothing else to add to these findings. PHYSICAL EXAMINATION GENERAL: On exam she is up walking around the emergency room hallways, in no acute distress. She is not short of breath. The respirations are not labored. She has a tendency toward anxiety, mildly anxious. LUNGS: The lungs are clear. CARDIOVASCULAR: Regular rate and rhythm. BACK: No CVA tenderness or spinal point tenderness. ABDOMEN: Her abdomen is nonacute. No rebound or guarding. Her recent laparoscopic incisions are healing well. Time is spent in discussion with her and her sister, reviewing the findings and her case to date. Sorry she is feeling poorly but glad to feel that she is feeling somewhat better. Reviewing the x-rays showing some dilated loops of small bowel and some air fluid levels suggestive of a partial small-bowel obstruction or ileus. There is clearly not an obstruction as she is having bowel movements. She is not having any emesis. Findings are most likely an ileus, although, some adhesion formation is possible as she has had proving capacity to form adhesions. Contributing factors to ileus would be her recent surgery and anesthesia, narcotic use, immobility, underlying hypothyroidism, underlying diabetes and decreased oral intake, and the irritation from the intraperitoneal bleeding. I explained on CT scan that there has been no further bleeding and her hematocrit has recovered substantially and this will eventually resolve over time but this can cause irritation and may be another contributing factor to her ileus and/or some scar formation. Nevertheless, no surgical intervention is warranted and that seems most likely a motility tissue. RECOMMENDATIONS Regular GI regimen. Recommend MiraLax twice daily over the next couple of weeks as she recovers. She will continue with observation in the emergency room to determine whether or not she requires full on hospital admission. Discussion ensued, questions were answered. I reviewed the final pathology showing a benign mucinous cystadenoma arising from some residual ovarian tissue. No evidence of malignancy. ASSESSMENT 1. Postop with a history as above. 2. Ileus versus partial small-bowel obstruction but with no emesis and with positive bowel movements and a number of factors that could contribute to an ileus. PLAN 1. Continue present management, IV hydration, supportive care. General GI regimen with MiraLax twice daily, increased physical activity. 2. No need for surgical intervention. 3. She is scheduled just follow up with me in my office this week and she is encouraged to keep that appointment as well. MD BALAJI Tang/ALEXANDREA /7:21 AM /3:41 PM
[2016-09-27] MEDS ORDERED: KETOROLAC TROMETHAMINE 30 MG/ML (IVP) VIAL IV PUSH ONE (17:30)
[2016-09-27] MEDS: SIMETHICONE 125 MG CHEWABLE TAB PO SCH ×2 (18:22→22:11)
[2016-09-27] MEDS: traZODone HCL 100 MG TAB PO SCH (21:00)
[2016-09-27] MEDS: ATORVASTATIN 20 MG TAB PO SCH (21:30)
[2016-09-27] MEDS ORDERED: KETOROLAC TROMETHAMINE 30 MG/ML (IVP) VIAL IV PUSH PRN (23:45)
[2016-09-28] MEDS: ONDANSETRON HCL 4 MG/2 ML VIAL IVP PRN ×4 (01:50→20:41)
[2016-09-28 05:05] VITALS: BP 146/70; PULSE 97; RESP 17; TEMP 98.1; O2SAT 99
--- NOTE | 2016-09-28 05:53 | RADRPT ---
EXAM DATE/TIME: 09/28/2016 05:40 [facility] COMPARISON: ABDOMEN KUB ONLY, September 27, 2016, 6:00. INDICATIONS : Nausea and abdominal pain. MEDICAL HISTORY : Hypertension. Hypothyroidism SURGICAL HISTORY : Cholecystectomy. Hysterectomy.Ovarian mass removal/oophorectomy ENCOUNTER: Subsequent ACUITY: 1 week PAIN SCORE: 7/10 LOCATION: Bilateral abdomen FINDINGS: Dilated loops of small bowel are noted over the central abdomen, and air is now seen in the large bow el. Cholecystectomy clips right upper quadrant. Osseous structures are intact. CONCLUSION: Dilated small bowel loops are noted as well as air in the colon. Ramiro Ramirez MD on September 28, 2016 at 5:51 Board Certified Radiologist. This report was verified electronically.
[2016-09-28] MEDS: SIMETHICONE 125 MG CHEWABLE TAB PO SCH ×3 (06:20→20:35)
[2016-09-28] MEDS: LEVOTHYROXINE SODIUM 25 MCG TAB PO SCH (06:20)
[2016-09-28] MEDS: INSULIN ASPART SUPPLEMENTAL SCALE SQ SCH ×4 (06:28→21:00)
[2016-09-28 08:00] VITALS: BP 167/80; PULSE 100; RESP 18; TEMP 97.5; O2SAT 100
--- NOTE | 2016-09-28 08:44 | PD.ONC.PN ---
Subjective Subjective Remarks [employer]/ONC Progress note pt sitting up in bed with c/o episode of vomiting X 1 last night a few hours after full liquid diet 1 small BM yesterday states has nausea this morning without any vomiting but she has not had any intake since vomiting last night has been OOB to ambulate feels very bloated this morning and states had small amount of flatus yesterday she is getting IV Toradol for pain and that is working to control abd pain Objective Data Date Time Temp Pulse Resp B/P Pulse Ox O2 Delivery O2 Flow Rate FiO2 09/28/16 08:00 97.5 100 18 167/80 100 09/28/16 05:05 98.1 97 17 146/70 99 09/28/16 01:08 12 09/27/16 23:56 98.1 80 18 185/86 100 09/27/16 19:53 98.7 81 18 165/77 98 09/27/16 18:23 18 09/27/16 16:16 98.1 82 24 163/77 99 09/27/16 12:48 97.9 85 18 177/84 98 09/27/16 08:40 97.6 82 16 165/75 98 Result Diagram: 09/25/16 1222 09/25/16 1222 Imaging Studies Last Impressions Abdomen X-Ray 09/28/16 06 Signed Impressions: Service Date/Time: Wednesday, September 28, 2016 05:40 - CONCLUSION: Dilated small bowel loops are noted as well as air in the colon. Ramiro Ramirez MD Chest X-Ray 09/25/16 0024 Signed Impressions: Service Date/Time: Sunday, September 25, 2016 09:40 - CONCLUSION: No acute cardiopulmonary abnormality is identified. Chidi Christian MD Last 24 hours Impressions Abdomen X-Ray 09/28/16 0600 Signed Impressions: Service Date/Time: Wednesday, September 28, 2016 05:40 - CONCLUSION: Dilated small bowel loops are noted as well as air in the colon. Ramiro Ramirez MD Administered Medications Medications (Trade) Dose Ordered Sig/Gema Route PRN Reason Start Time Stop Time Status Last Admin Dose Admin Sodium Chloride (NS Flush) 2 ml UNSCH PRN IV FLUSH FLUSH AFTER USING IV ACCESS 09/25/16 00:30 09/26/16 07:36 Sodium Chloride (NS Flush) 2 ml BID IV FLUSH 09/25/16 09:00 09/27/16 21:00 Ondansetron HCl (Zofran Inj) 4 mg Q6H PRN IVP NAUSEA OR VOMITING 09/25/16 00:30 09/28/16 06:21 Atorvastatin Calcium (Lipitor) 20 mg HS PO 09/25/16 21:00 09/27/16 21:30 Duloxetine HCl (Cymbalta Dr) 60 mg DAILY PO 09/25/16 09:00 09/27/16 09:01 Levothyroxine Sodium (Synthroid) 25 mcg DAILY@07 PO 09/25/16 07:00 09/27/16 06:33 Losartan Potassium (Cozaar) 50 mg DAILY PO BPM 09/25/16 09:00 09/27/16 09:01 Hydrochlorothiazide (Microzide) 12.5 mg DAILY PO 09/25/16 09:00 09/27/16 09:01 Enalaprilat (Vasotec Inj) 1.25 mg Q6H PRN IV sbp above 160 09/25/16 17:00 09/27/16 12:57 Polyethylene Glycol (Miralax) 17 gm BID PO 09/26/16 12:45 09/27/16 21:30 Simethicone (Phazyme Chew) 125 mg Q8HR PO 09/27/16 16:30 09/28/16 06:20 Ketorolac Tromethamine (Toradol Inj) 30 mg Q8H PRN IV PUSH PAIN SCALE 1 TO 10 09/27/16 23:45 09/29/16 23:44 09/28/16 00:05 Objective Remarks GENERAL: Well-nourished, well-developed patient. SKIN: Warm and dry. HEAD: Normocephalic. CARDIOVASCULAR: Regular rate and rhythm without murmurs. RESPIRATORY: Breath sounds equal bilaterally. No accessory muscle use. GASTROINTESTINAL: + BS in all 4 quad, distended EXTREMITIES: No cyanosis, or edema. MUSCULOSKELETAL: Adequate muscle tone. NEUROLOGICAL: No obvious focal deficit. Awake, alert, and oriented x3. PSYCHIATRIC: Appropriate mood and affect; insight and judgment normal. Assessment/Plan Problem List: (1) Abdominal pain Status: Acute (2) Partial obstruction of small intestine Status: Acute Plan: may consider NG tube to LIWS d/t episode of vomiting continue supportive care and Miralax ambulate IVF Tums start slow intake with ice chips Toradol for scheduled for pain Med team following and we appreciate care of patient Problem Qualifiers (1) Abdominal pain: Qualified Code: R10.9 - Abdominal pain, unspecified abdominal location Carlos Aviles Sep 28, 2016 08:44
[2016-09-28] MEDS: DHEA PO SCH (09:00)
[2016-09-28] MEDS ORDERED: ACETAMINOPHEN 1000 MG/100 ML VIAL IV PRN (09:15)
[2016-09-28] MEDS ORDERED: METOCLOPRAMIDE HCL 10 MG/2 ML VIAL IV PUSH ONE (09:15)
--- NOTE | 2016-09-28 09:21 | HHI.PR ---
Subjective Remarks had some vomiting this AM. felt better yesterday after toradol and simethicone. has been passing gas and liquid stools. has intermittent cramp/spasm type abdomen pain. Objective Vitals oriented nad heart reg lung cta abd bs/nt/no rebound ext no edema Vital Signs Date Time Temp Pulse Resp B/P Pulse Ox O2 Delivery O2 Flow Rate FiO2 09/28/16 08:00 97.5 100 18 167/80 100 09/28/16 05:05 98.1 97 17 146/70 99 09/28/16 01:08 12 09/27/16 23:56 98.1 80 18 185/86 100 09/27/16 19:53 98.7 81 18 165/77 98 09/27/16 18:23 18 09/27/16 16:16 98.1 82 24 163/77 99 09/27/16 12:48 97.9 85 18 177/84 98 09/27/16 09/27/16 09/28/16 15:00 23:00 07:00 Intake Total 360 ml 462 ml Balance 360 ml 462 ml Intake Oral 360 ml 462 ml # Voids 6 3 # Bowel Movements 2 Result Diagram: 09/25/16 1222 09/25/16 1222 Imaging Last Impressions Abdomen X-Ray 09/27/16 06 Signed Impressions: Service Date/Time: Tuesday, September 27, 2016 06:00 - CONCLUSION: Persistent bowel dilatation, perhaps slightly decreased from prior. Ramiro Ramirez MD Chest X-Ray 09/25/1623 Signed Impressions: Service Date/Time: Sunday, September 25, 2016 09:40 - CONCLUSION: No acute cardiopulmonary abnormality is identified. Chidi Christian MD Last Impressions Abdomen X-Ray 09/25/16 0800 Signed Impressions: Service Date/Time: Sunday, September 25, 2016 09:44 - CONCLUSION: Stable abnormally dilated small bowel in the central abdomen without significant change from yesterday's CT. Findings remain suspicious for small bowel obstruction. Chidi Christian MD Chest X-Ray 09/25/1623 Signed Impressions: Service Date/Time: Sunday, September 25, 2016 09:40 - CONCLUSION: No acute cardiopulmonary abnormality is identified. Chidi Christian MD A/P Problem List: (1) Partial obstruction of small intestine Status: Acute Plan: - Pt underwent robotic assisted laparoscopic resection of pelvic mass and lysis of adhesions back on 09/12/16. - Her post-op course was complicated by sudden drop in Hgb with apparent hemorrhagic ascites on CT. It was felt to be related to her surgery and pt was given blood transfusion for acute symptomatic blood loss anemia. - She was reportedly recovering well at home until 09/24/16, when she started having abdominal pain which persisted and so she presented to the [place] ER for evaluation. CT was obtained that shown loops of dilated bowel suggestive of partial SBO/Ileus. She was brought to [place] ER for further evaluation. - KUB (09/25/16) --> dilated loops of bowel - KUB (09/26/16) --> Slight improvement compared to images on 09/25 - KUB (09/27/16) --> Persistent bowel dilatation, perhaps slightly decreased from prior. Pt reports flatus and liquids stools. had some n/v earlier today. cont liquids today. scheduled reglan. cont miralax. iv ppi. ambulate If she is not getting significantly better then we may need to reimage her with CT (2) DM (diabetes mellitus) Status: Chronic Plan: - SSI (3) HTN (hypertension) Status: Chronic Plan: - resume home mediations Problem Qualifiers (1) DM (diabetes mellitus): (2) HTN (hypertension): Qualified Code: I10 - Essential hypertension Dre Dyson MD Sep 28, 2016 09:21
[2016-09-28] MEDS: POLYETHYLENE GLYCOL 17 GM PKG PO SCH ×2 (09:58→20:35)
[2016-09-28] MEDS: PANTOPRAZOLE SODIUM 40 MG VIAL IV PUSH SCH (09:59)
[2016-09-28] MEDS: LOSARTAN 50 MG TAB PO SCH (09:59)
[2016-09-28] MEDS: HYDROCHLOROTHIAZIDE 12.5 MG CAP PO SCH (10:00)
[2016-09-28] MEDS: DULoxetine HCl DR 60 MG CAP PO SCH (10:00)
[2016-09-28] MEDS: SODIUM CHLORIDE 0.9% FLUSH 10 ML FLUSH IV FLUSH SCH ×2 (10:01→21:00)
[2016-09-28 12:00] VITALS: BP 179/86; PULSE 94; RESP 18; TEMP 98.6; O2SAT 96
[2016-09-28] MEDS ORDERED: METOCLOPRAMIDE HCL 10 MG/2 ML VIAL IV PUSH SCH (14:00)
[2016-09-28 16:00] VITALS: BP 191/90; PULSE 96; RESP 20; TEMP 97.8; O2SAT 98
[2016-09-28 16:26] LABS: MAGNESIUM 2.5 MG/DL (1.5-2.5)
[2016-09-28 16:28] LABS: POTASSIUM 3.4 MEQ/L (3.5-5.1)
[2016-09-28] MEDS: cloNIDine HCL 0.1 MG TAB PO PRN (16:38)
[2016-09-28 17:08] VITALS: BP 180/88
[2016-09-28] MEDS ORDERED: DIATRIZOATE MEGLUM/DIATRIZOATE SOD 9 ML CUP PO ONE (17:15)
[2016-09-28] MEDS ORDERED: NS + KCL 40 MEQ INJ 1,000 ML IV SCH (18:00)
[2016-09-28] MEDS ORDERED: ENALAPRILAT 1.25 MG/ML VIAL IV PRN (19:00)
[2016-09-28 19:32] VITALS: BP 136/55; PULSE 103; RESP 18; TEMP 98.5; O2SAT 99
[2016-09-28] MEDS ORDERED: IOHEXOL 350 MG/ML 10 ML VIAL (for RAD DIAG) IV ONE (20:15)
--- NOTE | 2016-09-28 20:31 | RADRPT ---
EXAM DATE/TIME: 09/28/2016 20:08 [facility] COMPARISON: CT ABDOMEN & PELVIS W CONTRAST, September 24, 2016, 18:21. INDICATIONS : Lower diffuse abdomen pain, bowel obstruction. IV CONTRAST: 100 cc Omnipaque 350 (iohexol) IV ORAL CONTRAST: Prescribed oral contrast ingested. RADIATION DOSE: 11.42 CTDIvol (mGy) MEDICAL HISTORY : None SURGICAL HISTORY : Ovary removed within the last week. ENCOUNTER: Initial ACUITY: 3 days PAIN SCALE: 7/10 LOCATION: Bilateral lower quadrant TECHNIQUE: Volumetric scanning of the abdomen and pelvis was performed. Using automated exposure control and ad justment of the mA and/or kV according to patient size, radiation dose was kept as low as reasonably achievable to obtain optimal diagnostic quality images. DICOM format image data is available electro nically for review and comparison. FINDINGS: Compare September 24. Lung bases remain clear. Previous breast augmentation. No acute findings in the liver, spleen, adrenals or pancreas. 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 Right kidney unremarkable except for small cyst. There is persistent dilatation of small bowel to a diameter of about 4.4 cm with distal decompression characteristic of a small bowel obstruction. Previously described high density fluid in the lower ab domen and pelvis is stable to slightly decreased. No new fluid. No free air. No acute bony abnormalit y. CONCLUSION: 1. Persistent small bowel obstruction with small bowel dilatation stable to slightly worse compared w ith September 24. No free air. Thickened and angulated small bowel loops remain in the lower abdomen. 2. Stable to slight improvement of high density fluid in the lower abdomen and pelvis, most character istic of hemorrhage. Fletcher Spence MD on September 28, 2016 at 20:21 Board Certified Radiologist. This report was verified electronically.
[2016-09-28] MEDS: traZODone HCL 100 MG TAB PO SCH (20:35)
[2016-09-28] MEDS: ATORVASTATIN 20 MG TAB PO SCH (20:35)
[2016-09-29 00:41] VITALS: BP 116/57; PULSE 101; RESP 16; TEMP 98.3; O2SAT 99
[2016-09-29 04:02] VITALS: BP 121/59; PULSE 98; RESP 17; TEMP 97.8; O2SAT 96
[2016-09-29] MEDS: LEVOTHYROXINE SODIUM 25 MCG TAB PO SCH (06:43)
[2016-09-29] MEDS: SIMETHICONE 125 MG CHEWABLE TAB PO SCH ×3 (06:43→20:33)
[2016-09-29] MEDS: INSULIN ASPART SUPPLEMENTAL SCALE SQ SCH ×4 (06:58→20:49)
[2016-09-29] MEDS: NS + KCL 20 MEQ INJ 1,000 ML IV SCH (07:45)
[2016-09-29 07:58] VITALS: BP 146/69; PULSE 98; RESP 21; TEMP 97.7; O2SAT 97
[2016-09-29] MEDS: SODIUM CHLORIDE 0.9% FLUSH 10 ML FLUSH IV FLUSH SCH ×2 (09:00→20:34)
[2016-09-29] MEDS: DHEA PO SCH (09:00)
[2016-09-29] MEDS: LOSARTAN 50 MG TAB PO SCH (09:03)
[2016-09-29] MEDS: HYDROCHLOROTHIAZIDE 12.5 MG CAP PO SCH (09:03)
[2016-09-29] MEDS: POLYETHYLENE GLYCOL 17 GM PKG PO SCH ×2 (09:03→20:34)
[2016-09-29] MEDS: ONDANSETRON HCL 4 MG/2 ML VIAL IVP PRN ×3 (09:03→17:19)
[2016-09-29] MEDS: DULoxetine HCl DR 60 MG CAP PO SCH (09:04)
[2016-09-29] MEDS: PANTOPRAZOLE SODIUM 40 MG VIAL IV PUSH SCH (09:04)
--- NOTE | 2016-09-29 09:09 | HHI.PR ---
Subjective Remarks Pt reports that after taking the Zofran yesterday prior to the CT scan she started feeling much better She was able to drink the oral contrast and has been tolerating full liquids since that time She is moving her bowel but is producing liquid stool with some sediment. Abdomen is still distended but she does not feel as bloated and gassy. She has moved her bowels about 6 times since yesterday evening. Afebrile BP is improving. Objective Vitals Vital Signs Date Time Temp Pulse Resp B/P Pulse Ox O2 Delivery O2 Flow Rate FiO2 09/29/16 07:58 97.7 98 21 146/69 97 09/29/16 04:02 97.8 98 17 121/59 96 09/29/16 00:41 98.3 101 16 116/57 99 09/28/16 19:32 98.5 103 18 136/55 99 09/28/16 17:08 180/88 09/28/16 16:00 97.8 96 20 191/90 98 09/28/16 12:00 98.6 94 18 179/86 96 Result Diagram: 09/25/16 1222 09/28/16 1521 Other Results Laboratory Tests Test 09/28/16 15:21 Sodium Level 133 MEQ/L Potassium Level 3.4 MEQ/L Chloride Level 95 MEQ/L Carbon Dioxide Level 27.0 MEQ/L Anion Gap 11 MEQ/L Blood Urea Nitrogen 18 MG/DL Creatinine 0.66 MG/DL Estimat Glomerular Filtration 92 ML/MIN Rate Random Glucose 136 MG/DL Calcium Level 9.9 MG/DL Phosphorus Level 5.6 MG/DL Magnesium Level 2.5 MG/DL Imaging Last Impressions Abdomen X-Ray 09/28/16 0600 Signed Impressions: Service Date/Time: Wednesday, September 28, 2016 05:40 - CONCLUSION: Dilated small bowel loops are noted as well as air in the colon. Ramiro Ramirez MD Abdomen/Pelvis CT 09/28/16 0000 Signed Impressions: Service Date/Time: Wednesday, September 28, 2016 20:08 - CONCLUSION: 1. Persistent small bowel obstruction with small bowel dilatation stable to slightly worse compared with September 24. No free air. Thickened and angulated small bowel loops remain in the lower abdomen. 2. Stable to slight improvement of high density fluid in the lower abdomen and pelvis, most characteristic of hemorrhage. Fletcher Spence MD Chest X-Ray 09/25/16 0024 Signed Impressions: Service Date/Time: Sunday, September 25, 2016 09:40 - CONCLUSION: No acute cardiopulmonary abnormality is identified. Chidi Christian MD Last Impressions Abdomen X-Ray 09/27/16 0600 Signed Impressions: Service Date/Time: Tuesday, September 27, 2016 06:00 - CONCLUSION: Persistent bowel dilatation, perhaps slightly decreased from prior. Ramiro Ramirez MD Chest X-Ray 09/25/16 0024 Signed Impressions: Service Date/Time: Sunday, September 25, 2016 09:40 - CONCLUSION: No acute cardiopulmonary abnormality is identified. Chidi Christian MD Last Impressions Abdomen X-Ray 09/25/16 0800 Signed Impressions: Service Date/Time: Sunday, September 25, 2016 09:44 - CONCLUSION: Stable abnormally dilated small bowel in the central abdomen without significant change from yesterday's CT. Findings remain suspicious for small bowel obstruction. Chidi Christian MD Chest X-Ray 09/25/1623 Signed Impressions: Service Date/Time: Sunday, September 25, 2016 09:40 - CONCLUSION: No acute cardiopulmonary abnormality is identified. Chidi Christian MD Objective Remarks General: NAD, AAOx3 Chest: CTA Cardiac: Regular Abd: +BS, mildly distended, nontender Ext: No edema A/P Problem List: (1) Partial obstruction of small intestine Status: Acute Plan: - Pt underwent robotic assisted laparoscopic resection of pelvic mass and lysis of adhesions back on 09/12/16. - Her post-op course was complicated by sudden drop in Hgb with apparent hemorrhagic ascites on CT. It was felt to be related to her surgery and pt was given blood transfusion for acute symptomatic blood loss anemia. - She was reportedly recovering well at home until 09/24/16, when she started having abdominal pain which persisted and so she presented to the [facility] for evaluation. CT was obtained that shown loops of dilated bowel suggestive of partial SBO/Ileus. She was brought to [facility] for further evaluation. - KUB (09/25/16) --> dilated loops of bowel - KUB (09/26/16) --> Slight improvement compared to images on 09/25 - KUB (09/27/16) --> Persistent bowel dilatation, perhaps slightly decreased from prior. - CT Abd/pelvis (09/28/09) --> Persistent small bowel obstruction with small bowel dilatation stable to slightly worse compared with September 24. No free air. Thickened and angulated small bowel loops remain in the lower abdomen. Stable to slight improvement of high density fluid in the lower abdomen and pelvis, most characteristic of hemorrhage. - Pt is feeling clinically better today, she reports flatus and liquids stools. No further vomiting. - Cont liquids today. - Cont. Reglan. - Cont miralax. - PPI. - Ambulate - Dr. Guzman is following as well. - DVT prophylaxis with SCDs (2) DM (diabetes mellitus) Status: Chronic Plan: - SSI (3) HTN (hypertension) Status: Chronic Plan: - resume home mediations Assessment and Plan Patient examined. Assessment and plan formulated with Ninoska Romero PA-C. I agree with the above. feels much better. [address] a/p looks concerning for bowel obstruction. discussed with dr Guzman and we requested gen surg Dr Ramírez evaluate. sbft ordered. f/u. Problem Qualifiers (1) DM (diabetes mellitus): (2) HTN (hypertension): Qualified Code: I10 - Essential hypertension Ninoska Romero Sep 29, 2016 09:09 Dre Dyson MD Sep 29, 2016 12:50
[2016-09-29 11:16] VITALS: BP 133/61; PULSE 97; RESP 18; TEMP 98.1; O2SAT 97
--- NOTE | 2016-09-29 11:43 | PD.CONS ---
[facility] Service General Surgery Consult Requested By Dr. Dyson Reason for Consult SBO Primary Care Physician Unknown History of Present Illness 61 yo F s/p robotic assisted resection of right pelvis mass with extensive lysis of adhesions on 09/12/16 complicated by post op bleeding. She was home for a week or so doing well and tolerating diet, with fairly regular bowel movts. On 09/24 she returned to ED and has been treated for bowel obstruction since that time. Up until yesterday she was feeling very poorly with nausea. Since yesterday she has been feeling better. She is tolerating fulls and has had liquid bms with some solid material in it. She is passing some flatus. She thinks she is less distended today. CT abdomen and pelvis performed yesterday showed persistent small bowel obstruction. Review of Systems Constitutional: DENIES: Fever, Chills Eyes: DENIES: Eye inflammation, Eye pain Respiratory: DENIES: Cough, Shortness of breath Cardiovascular: DENIES: Chest pain, Palpitations Gastrointestinal: COMPLAINS OF: Abdominal pain, Diarrhea, Nausea Musculoskeletal: DENIES: Joint Swelling, Neck pain Integumentary: DENIES: Pruritus, Rash Neurologic: DENIES: Paresthesias, Seizures Past Family Social History Past Medical History dm 2 hypothyroidism peripheral neuropathy celio on cpap right ovary mass. nephrolithiasis hyperlipidemia Past Surgical History Hysterectomy Recent resection right pelvic mass Reported Medications Reported Meds & Active Scripts Active Oxycodone-Acetaminophen 5-325 mg Tab 1 Tab PO Q4H PRN Zofran (Ondansetron HCl) 4 Mg Tab 4 Mg PO Q6HR PRN Reported Vitamin D-3 (Cholecalciferol) 2,000 Unit Tab 1 Tab PO DAILY Fish Oil (Collins-3 Fatty Acids) 300 Mg Capsule Unknown Dose PO DAILY Dhea (Prasterone (DHEA)) 50 Mg Cap 1 Cap PO DAILY Vitamin E 200 Unit Cap 400 Units PO DAILY Align (Lactobacillus Rhamnosus (GG)) 4 Mg Cap 4 Mg PO DAILY Trazodone (Trazodone HCl) 100 Mg Tablet 100 Mg PO HS Atorvastatin (Atorvastatin Calcium) 20 Mg Tab 20 Mg PO HS Duloxetine DR (Duloxetine HCl) 60 Mg Capdr 60 Mg PO DAILY Metformin (Metformin HCl) 850 Mg Tab 850 Mg PO BIDPC With meals Losartan-Hydrochlorothiazide 50-12.5 Mg Tab 1 Tab PO DAILY Levothyroxine (Levothyroxine Sodium) 25 Mcg Tab 25 Mcg PO DAILY Allergies: Coded Allergies: Demerol (Verified Adverse Reaction, Intermediate, N/V, 09/12/16) Active Ordered Medications Current Medications Medications (Trade) Dose Ordered Sig/Gema Route Start Time Stop Time Status Last Admin (NS Flush) 2 ml UNSCH PRN IV FLUSH 09/25/16 00:30 09/26/16 07:36 (NS Flush) 2 ml BID IV FLUSH 09/25/16 09:00 09/28/16 21:00 (Restoril) 15 mg HS PRN PO 09/25/16 00:30 (Narcan Inj) 0.4 mg UNSCH PRN IV 09/25/16 00:30 (Milk Of Magnesia Liq) 30 ml Q12H PRN PO 09/25/16 00:30 (Lipitor) 20 mg HS PO 09/25/16 21:00 09/28/16 20:35 (Cymbalta Dr) 60 mg DAILY PO 09/25/16 09:00 09/29/16 09:04 (Synthroid) 25 mcg DAILY@07 PO 09/25/16 07:00 09/29/16 06:43 (Cozaar) 50 mg DAILY PO 09/25/16 09:00 09/29/16 09:03 Patient Own Medication PT OWN MED: PRASTER... DAILY PO 09/25/16 09:00 (Desyrel) 100 mg HS PO 09/25/16 21:00 09/28/16 20:35 (Microzide) 12.5 mg DAILY PO 09/25/16 09:00 09/29/16 09:03 (Miralax) 17 gm BID PO 09/26/16 12:45 09/29/16 09:03 (Phazyme Chew) 125 mg Q8HR PO 09/27/16 16:30 09/29/16 06:43 (Ofirmev Inj) 1,000 mg Q6H PRN IV 09/28/16 09:15 (Protonix Inj) 40 mg DAILY IV PUSH 09/28/16 09:15 09/29/16 09:04 (Catapres) 0.1 mg Q4H PRN PO 09/28/16 13:00 09/28/16 16:38 (Vasotec Inj) 1.25 mg Q4H PRN IV 09/28/16 19:00 Ondansetron HCl 4 mg 4 mg Q4H PRN IVP 09/28/16 17:00 09/29/16 09:03 (NS + KCl 20 Meq Inj) 1,000 ml @ 84 mls/hr [id number] IV 09/29/16 07:15 09/29/16 07:45 Family History Noncontributory Social History No alcohol tobacco or drug use. Her sister is present with her. Physical Exam Vital Signs Vital Signs Date Time Temp Pulse Resp B/P Pulse Ox O2 Delivery O2 Flow Rate FiO2 09/29/16 11:16 98.1 97 18 133/61 97 09/29/16 07:58 97.7 98 21 146/69 97 09/29/16 04:02 97.8 98 17 121/59 96 09/29/16 00:41 98.3 101 16 116/57 99 09/28/16 19:32 98.5 103 18 136/55 99 09/28/16 17:08 180/88 09/28/16 16:00 97.8 96 20 191/90 98 09/28/16 12:00 98.6 94 18 179/86 96 Physical Exam GENERAL: Awake and alert. No acute distress. Cooperative. Obese HEAD: Normocephalic. Atraumatic. EYES: Pupils equal round and reactive to light bilaterally. No scleral icterus. ENT: Moist oral mucosa. NECK: Trachea midline. CHEST: Lungs clear to auscultation bilaterally with no wheezing or rhonchi. No respiratory distress. CARDIOVASCULAR: Regular rate and rhythm. ABDOMEN: Obese, round. Incisions intact with Steri-Strips in place. Moderate distention, soft, nontender. No hernias or masses noted. EXTREMITIES: No cyanosis or edema. SKIN: Warm, dry, nonjaundiced. Laboratory Laboratory Tests Test 09/28/16 15:21 Sodium Level 133 Potassium Level 3.4 Chloride Level 95 Carbon Dioxide Level 27.0 Anion Gap 11 Blood Urea Nitrogen 18 Creatinine 0.66 Estimat Glomerular Filtration 92 Rate Random Glucose 136 Calcium Level 9.9 Phosphorus Level 5.6 Magnesium Level 2.5 Result Diagram: 09/25/16 1222 09/28/16 1521 Imaging Last Impressions Abdomen X-Ray 09/28/16 0600 Signed Impressions: Service Date/Time: Wednesday, September 28, 2016 05:40 - CONCLUSION: Dilated small bowel loops are noted as well as air in the colon. Ramiro Ramirez MD Abdomen/Pelvis CT 09/28/16 0000 Signed Impressions: Service Date/Time: Wednesday, September 28, 2016 20:08 - CONCLUSION: 1. Persistent small bowel obstruction with small bowel dilatation stable to slightly worse compared with September 24. No free air. Thickened and angulated small bowel loops remain in the lower abdomen. 2. Stable to slight improvement of high density fluid in the lower abdomen and pelvis, most characteristic of hemorrhage. Fletcher Spence MD Chest X-Ray 09/25/16 0024 Signed Impressions: Service Date/Time: Sunday, September 25, 2016 09:40 - CONCLUSION: No acute cardiopulmonary abnormality is identified. Chidi Christian MD Assessment and Plan Assessment and Plan 61 yo s/p robot assisted right pelvis mass resection and extensive KERA, with partial small bowel obstruction. She is somewhat improved today but has had an up and down course recently. I will order a small bowel follow through for further evaluation and possibly for therapy. DarrellMj blunt MD Sep 29, 2016 11:43
[2016-09-29] MEDS ORDERED: DIATRIZOATE MEGLUM/DIATRIZOATE SOD 120 ML BTL (for RAD DIAG) PO ONE (12:09)
--- NOTE | 2016-09-29 15:46 | MB ---
cc: CLAYTON EUGENE M.D., KELLY L. MD BRAITHWAITE,DEIRDRE COLINDRES M.D., M.D., CARLOS L. M.D. DEAN,WILNER Mi MD DATE OF CONSULTATION: 09/29/2016 REASON FOR CONSULTATION: Amanda Sierra was seen in followup. She is accompanied by her sister. The findings and ongoing evaluation, and results are continually reviewed and so presented to her in summary fashion. She continues to clinically have some improvement intermittently with some setbacks intermittently. She reports overall she is feeling better today compared to yesterday. She has not had any emesis. She apparently declined NG tube. She continues to have multiple loose of bowel movements. Despite this the imaging continues to show dilated loops of small bowel with air-fluid levels. With this some distal decompression suggestive of small bowel obstruction. Nevertheless, there is also air seen in the colon such that her clinical and radiographic picture is mixed. PHYSICAL EXAMINATION: IN GENERAL/ VITAL SIGNS: She remains afebrile, pulse ranged from 98-103, respirations 18-21, blood pressure 116-180 over 55-88, O2 saturations greater than equal to 96% on room air. In' s and out's, report at least six loose bowel movements in the last 24 hours. There are no new labs this. IN GENERAL: She is alert, oriented x3 in no acute distress. LUNGS: Clear. CARDIOVASCULAR SYSTEM: Regular rhythm. BACK: No costovertebral angle tenderness, spinal point tenderness. ABDOMEN: Minimally tense. There are hypoactive bowel sounds. It is not acute. There is no overt rebound or guarding. EXTREMITIES: Nontender. OBJECTIVE Abdominal x-ray yesterday showed dilated loops of small bowel and the central abdomen areas noted in the colon postop changes with some surgical clips noted. A CT scan yesterday showed similar findings. The previously known of blood in the pelvis is stable or slightly improved. There is persistent dilated loops of small bowel. The largest of which is 4.4 cm in diameter with distal decompression, no free air. IMPRESSION: Small bowel obstruction. DISCUSSION: Time spent discussed with her sister reviewing these findings are very grateful for the care Dr. Dyson and appreciate the input from Dr. Ramírez from general surgery. I agree with the small bowel follow-through series both for diagnosis and to see if there is a focal area mechanical obstruction and for the possible therapeutic cathartic benefit of the study. She reports she has had one bowel movement since starting the drinking with contrast and explained that it is hoped that her issues will resolve without surgical intervention. I recommend again consideration of a nasogastric tube, she will take that into consideration, but is not in favor of that and the rationale for considering that is this is discussed. Conversely we will defer to input in judgment from Dr. Ramírez whether or not surgical intervention is necessary. We would ask him to direct surgical management if that becomes necessary. Discussion ensued questions were answered. Six. She her sister expressed good understanding. MD BALAJI Tang/thania /2:39 PM /3:32 PM
--- NOTE | 2016-09-29 15:49 | RADRPT ---
EXAM DATE/TIME: 09/29/2016 12:02 [facility] COMPARISON: No previous studies available for comparison. INDICATIONS : Obstruction. FLUORO TIME: 0 minutes IMAGE COUNT: 13 CONTRAST: MD Rodriguez IMAGING TIME(S): 15 min, 30 min, 1 hr, 3 hr MEDICAL HISTORY : Hypertension. Hypothyroidism. SURGICAL HISTORY : Cholecystectomy. Hysterectomy. Rt ovarian mass removal ENCOUNTER: Subsequent ACUITY: 4 - 6 days PAIN SCORE: 3/10 LOCATION: Bilateral middle abdomen FINDINGS: Preliminary film demonstrates multiple moderately dilated loops of proximal and mid small bowel. The colon is nondilated. There are surgical clips in the right upper quadrant most likely from previous c holecystectomy.. The stomach is grossly unremarkable. Examination of the small bowel demonstrates dilatation of the proximal and mid small bowel. However, at 30 minutes contrast does appear to be moving through the dilated small bowel. At one hour the cont rast has progressed through the dilated portion of the small bowel. By 3 hours, the contrast has prog ressed through the entire small bowel as well as colon. Contrast is seen all the way down to the rect um. The distal small bowel and terminal ileum are not dilated. The colon is nondilated. CONCLUSION: 1. There are moderately dilated loops of proximal and mid small bowel. However, contrast progresses t hrough these loops without significant delay. In fact the contrast is completely through the small piyush wel and colon within 3 hours suggesting no significant GI obstruction. 2. However, there does appear to be a transition point where the distal small bowel and terminal ileu m are nondilated. Patient I suspect could have a mild small bowel obstruction of the distal small bow el without causing significant delay in transit of the contrast. Adeel Molina MD on September 29, 2016 at 15:42 Board Certified Radiologist. This report was verified electronically.
[2016-09-29 18:19] LABS: BICARBONATE 23.4 MEQ/L (21.0-32.0); POTASSIUM 3.2 MEQ/L (3.5-5.1)
[2016-09-29 19:46] VITALS: BP 158/74; PULSE 87; TEMP 98.2; O2SAT 99
[2016-09-29] MEDS: ATORVASTATIN 20 MG TAB PO SCH (20:33)
[2016-09-29] MEDS: traZODone HCL 100 MG TAB PO SCH (20:35)
[2016-09-29 23:09] VITALS: BP 148/70; PULSE 82; RESP 19; TEMP 97.7; O2SAT 98
[2016-09-30] MEDS: NS + KCL 20 MEQ INJ 1,000 ML IV SCH ×3 (00:15→22:43)
[2016-09-30] MEDS: ONDANSETRON HCL 4 MG/2 ML VIAL IVP PRN (01:46)
[2016-09-30] MEDS: cloNIDine HCL 0.1 MG TAB PO PRN (02:15)
[2016-09-30 02:23] VITALS: BP 176/80; PULSE 94; RESP 17; TEMP 97.6; O2SAT 97
[2016-09-30 04:00] VITALS: BP 142/69; PULSE 81; RESP 17; TEMP 97; O2SAT 98
[2016-09-30] MEDS: SIMETHICONE 125 MG CHEWABLE TAB PO SCH ×3 (06:10→22:41)
[2016-09-30] MEDS: LEVOTHYROXINE SODIUM 25 MCG TAB PO SCH (06:10)
[2016-09-30] MEDS: INSULIN ASPART SUPPLEMENTAL SCALE SQ SCH ×3 (06:13→21:00)
[2016-09-30] MEDS ORDERED: POTASSIUM CHLORIDE 20 MEQ CONTROLLED RELEASE TAB PO ONE (07:30)
[2016-09-30 08:00] VITALS: BP 174/86; PULSE 89; RESP 18; TEMP 97.9; O2SAT 100
[2016-09-30] MEDS: DHEA PO SCH (09:00)
[2016-09-30] MEDS: HYDROCHLOROTHIAZIDE 12.5 MG CAP PO SCH (09:16)
[2016-09-30] MEDS: LOSARTAN 50 MG TAB PO SCH (09:16)
[2016-09-30] MEDS: POLYETHYLENE GLYCOL 17 GM PKG PO SCH ×2 (09:17→22:41)
[2016-09-30] MEDS: DULoxetine HCl DR 60 MG CAP PO SCH (09:27)
--- NOTE | 2016-09-30 09:28 | HHI.PR ---
Subjective Remarks bowels have been moving has been tolerating full liquids Objective Vitals heart reg lung cta abd s/mild distention. bs ext no edema Vital Signs Date Time Temp Pulse Resp B/P Pulse Ox O2 Delivery O2 Flow Rate FiO2 09/30/16 04:00 97.0 81 17 142/69 98 09/30/16 02:23 97.6 94 17 176/80 97 09/29/16 23:09 97.7 82 19 148/70 98 09/29/16 19:46 98.2 87 158/74 99 09/29/16 11:16 98.1 97 18 133/61 97 09/29/16 09/29/16 09/30/16 15:00 23:00 07:00 Intake Total 240 ml Balance 240 ml Intake Oral 240 ml # Voids 3 2 # Bowel Movements 3 2 Result Diagram: 09/29/16 1709 Imaging Last Impressions Abdomen X-Ray 09/28/16 06 Signed Impressions: Service Date/Time: Wednesday, September 28, 2016 05:40 - CONCLUSION: Dilated small bowel loops are noted as well as air in the colon. Ramiro Ramirez MD Abdomen/Pelvis CT 09/28/16 0000 Signed Impressions: Service Date/Time: Wednesday, September 28, 2016 20:08 - CONCLUSION: 1. Persistent small bowel obstruction with small bowel dilatation stable to slightly worse compared with September 24. No free air. Thickened and angulated small bowel loops remain in the lower abdomen. 2. Stable to slight improvement of high density fluid in the lower abdomen and pelvis, most characteristic of hemorrhage. Fletcher Spence MD Chest X-Ray 09/25/16 0024 Signed Impressions: Service Date/Time: Sunday, September 25, 2016 09:40 - CONCLUSION: No acute cardiopulmonary abnormality is identified. Chidi Christian MD Last Impressions Abdomen X-Ray 09/27/16 0600 Signed Impressions: Service Date/Time: Tuesday, September 27, 2016 06:00 - CONCLUSION: Persistent bowel dilatation, perhaps slightly decreased from prior. Ramiro Ramirez MD Chest X-Ray 09/25/16 0024 Signed Impressions: Service Date/Time: Sunday, September 25, 2016 09:40 - CONCLUSION: No acute cardiopulmonary abnormality is identified. Chidi Christian MD Last Impressions Abdomen X-Ray 09/25/16 0800 Signed Impressions: Service Date/Time: Sunday, September 25, 2016 09:44 - CONCLUSION: Stable abnormally dilated small bowel in the central abdomen without significant change from yesterday's CT. Findings remain suspicious for small bowel obstruction. Chidi Christian MD Chest X-Ray 09/25/16 0024 Signed Impressions: Service Date/Time: Sunday, September 25, 2016 09:40 - CONCLUSION: No acute cardiopulmonary abnormality is identified. Chidi Christian MD A/P Problem List: (1) Partial obstruction of small intestine Status: Acute Plan: - Pt underwent robotic assisted laparoscopic resection of pelvic mass and lysis of adhesions back on 09/12/16. - Her post-op course was complicated by sudden drop in Hgb with apparent hemorrhagic ascites on CT. It was felt to be related to her surgery and pt was given blood transfusion for acute symptomatic blood loss anemia. - She was reportedly recovering well at home until 09/24/16, when she started having abdominal pain which persisted and so she presented to the [facility] for evaluation. CT was obtained that shown loops of dilated bowel suggestive of partial SBO/Ileus. She was brought to [facility] ER for further evaluation. - KUB (09/25/16) --> dilated loops of bowel - KUB (09/26/16) --> Slight improvement compared to images on 09/25 - KUB (09/27/16) --> Persistent bowel dilatation, perhaps slightly decreased from prior. - CT Abd/pelvis (09/28/09) --> Persistent small bowel obstruction with small bowel dilatation stable to slightly worse compared with September 24. No free air. Thickened and angulated small bowel loops remain in the lower abdomen. Stable to slight improvement of high density fluid in the lower abdomen and pelvis, most characteristic of hemorrhage. -sbft 09/29 dilated prox/mid small bowel with apparent transition point distally but contrast passes cont liquids. advance if ok with surgery. replace lytes supportive care dvt prophylaxis ambulate f/u pending kub and labs. (2) DM (diabetes mellitus) Status: Chronic Plan: - SSI (3) HTN (hypertension) Status: Chronic Plan: - resume home mediations Problem Qualifiers (1) DM (diabetes mellitus): (2) HTN (hypertension): Qualified Code: I10 - Essential hypertension Dre Dyson MD Sep 30, 2016 09:28
[2016-09-30] MEDS: SODIUM CHLORIDE 0.9% FLUSH 10 ML FLUSH IV FLUSH SCH ×2 (09:30→21:00)
[2016-09-30] MEDS: PANTOPRAZOLE SODIUM 40 MG VIAL IV PUSH SCH (09:30)
[2016-09-30 10:04] LABS: AUTOMATED NEUTROPHIL # 2.9 TH/MM3 (1.8-7.7); BASOPHIL % 0.8 % (0.0-2.0); EOSINOPHIL # 0.2 TH/MM3 (0-0.4); EOSINOPHIL % 3.5 % (0.0-4.0); HEMATOCRIT 34.6 % (35.0-46.0); HEMO FLAGS DIFF FINAL; LYMPH % 21.1 % (9.0-44.0); MEAN CELL VOLUME 84.8 FL (80.0-100.0); MEAN CORPUSCULAR HEMOGLOBIN 29.2 PG (27.0-34.0); MEAN CORPUSCULAR HGB CONC 34.5 % (32.0-36.0); MONO % 13.8 % (0.0-8.0); NEUT % 60.8 % (16.0-70.0); PLATELET COUNT 426 TH/MM3 (150-450); RED BLOOD COUNT 4.08 MIL/MM3 (4.00-5.30); RED CELL DISTRIBUTION WIDTH 16.3 % (11.6-17.2); WHITE BLOOD COUNT 4.8 TH/MM3 (4.0-11.0)
[2016-09-30 10:14] LABS: BICARBONATE 25.3 MEQ/L (21.0-32.0); MAGNESIUM 2.4 MG/DL (1.5-2.5); POTASSIUM 3.3 MEQ/L (3.5-5.1)
--- NOTE | 2016-09-30 10:43 | RADRPT ---
EXAM DATE/TIME: 09/30/2016 08:01 [facility] COMPARISON: SMALL BOWEL SERIES W/GASTROGRAFIN, September 29, 2016, 12:02. CT ABDOMEN & PELVIS W CONTRAST, September, 20:08. ABDOMEN KUB ONLY, September 28, 2016, 5:40. INDICATIONS : Abdominal distention. MEDICAL HISTORY : Hyperthyroidism. Hypertension SURGICAL HISTORY : Cholecystectomy. Hysterectomy. Rt ovarian mass removal ENCOUNTER: Subsequent ACUITY: 4 - 6 days PAIN SCORE: 5/10 LOCATION: Bilateral abdomen FINDINGS: Supine view of the abdomen was performed. The abdominal bowel gas pattern continues to demonstrate p roximal to mid small bowel ileus. Contrast given for CT of the abdomen has completely progressed into the colon. CONCLUSION: Persistent small bowel ileus with continued suspicion of low-grade obstructing process in the distal small bowel. Rd Fierro MD on September 30, 2016 at 10:35 Board Certified Radiologist. This report was verified electronically.
[2016-09-30 12:00] VITALS: BP 155/87; PULSE 88; RESP 20; TEMP 98.2; O2SAT 99
--- NOTE | 2016-09-30 13:02 | HHI.PR ---
Subjective Subjective Notes She is tolerating fulls and has had multiple BMs. SBFT yesterday showed appropriate transit of contrast but still dilated proximal small bowel with transition point. Objective Vitals/I&O Vital Signs Date Time Temp Pulse Resp B/P Pulse Ox O2 Delivery O2 Flow Rate FiO2 09/30/16 04:00 97.0 81 17 142/69 98 Labs Laboratory Tests Test 09/29/16 09/30/16 17:09 09:27 Sodium Level 138 138 Potassium Level 3.2 3.3 Chloride Level 104 103 Carbon Dioxide Level 23.4 25.3 Anion Gap 11 10 Blood Urea Nitrogen 14 10 Creatinine 0.58 0.50 Estimat Glomerular Filtration 106 126 Rate Random Glucose 116 89 Calcium Level 8.9 8.5 White Blood Count 4.8 Red Blood Count 4.08 Hemoglobin 11.9 Hematocrit 34.6 Mean Corpuscular Volume 84.8 Mean Corpuscular Hemoglobin 29.2 Mean Corpuscular Hemoglobin 34.5 Concent Red Cell Distribution Width 16.3 Platelet Count 426 Mean Platelet Volume 7.2 Neutrophils (%) (Auto) 60.8 Lymphocytes (%) (Auto) 21.1 Monocytes (%) (Auto) 13.8 Eosinophils (%) (Auto) 3.5 Basophils (%) (Auto) 0.8 Neutrophils # (Auto) 2.9 Lymphocytes # (Auto) 1.0 Monocytes # (Auto) 0.7 Eosinophils # (Auto) 0.2 Basophils # (Auto) 0.0 CBC Comment DIFF FINAL Differential Comment Hematology Comments Magnesium Level 2.4 Radiology Last Impressions Abdomen X-Ray 09/28/16 0600 Signed Impressions: Service Date/Time: Wednesday, September 28, 2016 05:40 - CONCLUSION: Dilated small bowel loops are noted as well as air in the colon. Ramiro Ramirez MD Abdomen/Pelvis CT 09/28/16 0000 Signed Impressions: Service Date/Time: Wednesday, September 28, 2016 20:08 - CONCLUSION: 1. Persistent small bowel obstruction with small bowel dilatation stable to slightly worse compared with September 24. No free air. Thickened and angulated small bowel loops remain in the lower abdomen. 2. Stable to slight improvement of high density fluid in the lower abdomen and pelvis, most characteristic of hemorrhage. Fletcher Spence MD Chest X-Ray 09/25/16 0024 Signed Impressions: Service Date/Time: Sunday, September 25, 2016 09:40 - CONCLUSION: No acute cardiopulmonary abnormality is identified. Chidi Christian MD Narrative Exam NAD Abd: mod distention, soft, inc c/d/i A/P Assessment and Plan 61 yo s/p robot assisted right pelvis mass resection and extensive KERA, with partial small bowel obstruction. SBFT showed normal transit of contrast but persistent transition point. She is tolerating fulls. Try soft diet. Will attempt non op management. If she does not tolerate diet or has persistent symptoms over coming weeks she may requiring lysis of adhesions. Mj Ramírez MD Sep 30, 2016 13:01
[2016-09-30 16:00] VITALS: BP 142/81; PULSE 90; RESP 18; TEMP 97.7; O2SAT 100
[2016-09-30 20:00] VITALS: BP 150/71; PULSE 85; RESP 17; TEMP 96.6; O2SAT 99
[2016-09-30] MEDS: traZODone HCL 100 MG TAB PO SCH (21:00)
[2016-09-30] MEDS: ATORVASTATIN 20 MG TAB PO SCH (22:42)
[2016-09-30] MEDS: DOCUSATE SODIUM 100 MG CAP PO SCH (22:43)
[2016-10-01] VITALS: BP 157/83; PULSE 78; RESP 17; TEMP 97.8; O2SAT 100
[2016-10-01 04:00] VITALS: BP 156/72; PULSE 102; RESP 18; TEMP 98.1; O2SAT 98
[2016-10-01] MEDS: NS + KCL 20 MEQ INJ 1,000 ML IV SCH ×2 (05:40→19:09)
[2016-10-01] MEDS: LEVOTHYROXINE SODIUM 25 MCG TAB PO SCH (05:40)
[2016-10-01] MEDS: SIMETHICONE 125 MG CHEWABLE TAB PO SCH ×3 (05:40→21:19)
[2016-10-01 06:12] LABS: BICARBONATE 25.7 MEQ/L (21.0-32.0); POTASSIUM 3.5 MEQ/L (3.5-5.1)
[2016-10-01] MEDS: INSULIN ASPART SUPPLEMENTAL SCALE SQ SCH ×2 (06:49→21:00)
[2016-10-01 08:00] VITALS: BP 142/72; PULSE 81; RESP 14; TEMP 97.8; O2SAT 100
[2016-10-01] MEDS ORDERED: POTASSIUM CHLORIDE 20 MEQ CONTROLLED RELEASE TAB PO ONE (08:00)
[2016-10-01] MEDS: DHEA PO SCH (09:00)
--- NOTE | 2016-10-01 09:03 | HHI.PR ---
Subjective Subjective Notes She is tolerating the soft diet and having liquid watery BMs, not really any solid stool. Objective Vitals/I&O Vital Signs Date Time Temp Pulse Resp B/P Pulse Ox O2 Delivery O2 Flow Rate FiO2 10/01/16 04:00 98.1 102 18 156/72 98 Labs Laboratory Tests Test 09/30/16 10/01/16 09:27 05:30 White Blood Count 4.8 Red Blood Count 4.08 Hemoglobin 11.9 Hematocrit 34.6 Mean Corpuscular Volume 84.8 Mean Corpuscular Hemoglobin 29.2 Mean Corpuscular Hemoglobin 34.5 Concent Red Cell Distribution Width 16.3 Platelet Count 426 Mean Platelet Volume 7.2 Neutrophils (%) (Auto) 60.8 Lymphocytes (%) (Auto) 21.1 Monocytes (%) (Auto) 13.8 Eosinophils (%) (Auto) 3.5 Basophils (%) (Auto) 0.8 Neutrophils # (Auto) 2.9 Lymphocytes # (Auto) 1.0 Monocytes # (Auto) 0.7 Eosinophils # (Auto) 0.2 Basophils # (Auto) 0.0 CBC Comment DIFF FINAL Differential Comment Hematology Comments Sodium Level 138 137 Potassium Level 3.3 3.5 Chloride Level 103 102 Carbon Dioxide Level 25.3 25.7 Anion Gap 10 9 Blood Urea Nitrogen 10 6 Creatinine 0.50 0.44 Estimat Glomerular Filtration 126 146 Rate Random Glucose 89 96 Calcium Level 8.5 8.5 Magnesium Level 2.4 Radiology Last Impressions Abdomen X-Ray 09/28/16 0600 Signed Impressions: Service Date/Time: Wednesday, September 28, 2016 05:40 - CONCLUSION: Dilated small bowel loops are noted as well as air in the colon. Ramiro Ramirez MD Abdomen/Pelvis CT 09/28/16 0000 Signed Impressions: Service Date/Time: Wednesday, September 28, 2016 20:08 - CONCLUSION: 1. Persistent small bowel obstruction with small bowel dilatation stable to slightly worse compared with September 24. No free air. Thickened and angulated small bowel loops remain in the lower abdomen. 2. Stable to slight improvement of high density fluid in the lower abdomen and pelvis, most characteristic of hemorrhage. Fletcher Spence MD Chest X-Ray 09/25/16 0024 Signed Impressions: Service Date/Time: Sunday, September 25, 2016 09:40 - CONCLUSION: No acute cardiopulmonary abnormality is identified. Chidi Christian MD Narrative Exam NAD Abd: mod distention, soft, inc c/d/i A/P Assessment and Plan 61 yo s/p robot assisted right pelvis mass resection and extensive KERA, with partial small bowel obstruction. SBFT showed normal transit of contrast but persistent transition point. She is tolerating fulls. She is doing ok on soft diet. I would give her a few more meals to make sure she is going to tolerate at home and if she is dc tomorrow. I recommend soft/ low residue diet at home. She can f/u with me in office in the next couple of weeks as well as with Dr. Guzman. Discussed case yesterday with him and we will try to give her more time to resolve this nonoperatively. Darrell,Mj MEZA Oct 01, 2016 09:03
--- NOTE | 2016-10-01 09:10 | HHI.PR ---
Subjective Remarks anxious about going home. wants to wait until tomorrow. Objective Vitals heart reg lung cta abd bs/nt ext no edema Vital Signs Date Time Temp Pulse Resp B/P Pulse Ox O2 Delivery O2 Flow Rate FiO2 10/01/16 04:00 98.1 102 18 156/72 98 10/01/16 00:00 97.8 78 17 157/83 100 09/30/16 20:00 96.6 85 17 150/71 99 09/30/16 16:00 97.7 90 18 142/81 100 09/30/16 12:00 98.2 88 20 155/87 99 09/30/16 09/30/16 10/01/16 15:00 23:00 07:00 Intake Total 3144 ml 480 ml Balance 3144 ml 480 ml Intake Oral 2160 ml 480 ml IV Total 984 ml # Voids 12 3 Result Diagram: 09/30/16 0927 10/01/16 0530 Imaging Last Impressions Abdomen X-Ray 09/28/16 06 Signed Impressions: Service Date/Time: Wednesday, September 28, 2016 05:40 - CONCLUSION: Dilated small bowel loops are noted as well as air in the colon. Ramiro Ramirez MD Abdomen/Pelvis CT 09/28/16 0000 Signed Impressions: Service Date/Time: Wednesday, September 28, 2016 20:08 - CONCLUSION: 1. Persistent small bowel obstruction with small bowel dilatation stable to slightly worse compared with September 24. No free air. Thickened and angulated small bowel loops remain in the lower abdomen. 2. Stable to slight improvement of high density fluid in the lower abdomen and pelvis, most characteristic of hemorrhage. Fletcher Spence MD Chest X-Ray 09/25/16 0024 Signed Impressions: Service Date/Time: Sunday, September 25, 2016 09:40 - CONCLUSION: No acute cardiopulmonary abnormality is identified. Chidi Christian MD Last Impressions Abdomen X-Ray 09/27/16 06 Signed Impressions: Service Date/Time: Tuesday, September 27, 2016 06:00 - CONCLUSION: Persistent bowel dilatation, perhaps slightly decreased from prior. Ramiro Ramirez MD Chest X-Ray 09/25/16 002 Signed Impressions: Service Date/Time: Sunday, September 25, 2016 09:40 - CONCLUSION: No acute cardiopulmonary abnormality is identified. Chidi Christian MD Last Impressions Abdomen X-Ray 09/25/16 0800 Signed Impressions: Service Date/Time: Sunday, September 25, 2016 09:44 - CONCLUSION: Stable abnormally dilated small bowel in the central abdomen without significant change from yesterday's CT. Findings remain suspicious for small bowel obstruction. Chidi Christian MD Chest X-Ray 09/25/16 0024 Signed Impressions: Service Date/Time: Sunday, September 25, 2016 09:40 - CONCLUSION: No acute cardiopulmonary abnormality is identified. Chidi Christian MD A/P Problem List: (1) Partial obstruction of small intestine Status: Acute Plan: - Pt underwent robotic assisted laparoscopic resection of pelvic mass and lysis of adhesions back on 09/12/16. - Her post-op course was complicated by sudden drop in Hgb with apparent hemorrhagic ascites on CT. It was felt to be related to her surgery and pt was given blood transfusion for acute symptomatic blood loss anemia. - She was reportedly recovering well at home until 09/24/16, when she started having abdominal pain which persisted and so she presented to the [place] ER for evaluation. CT was obtained that shown loops of dilated bowel suggestive of partial SBO/Ileus. She was brought to [place] ER for further evaluation. - KUB (09/25/16) --> dilated loops of bowel - KUB (09/26/16) --> Slight improvement compared to images on 09/25 - KUB (09/27/16) --> Persistent bowel dilatation, perhaps slightly decreased from prior. - CT Abd/pelvis (09/28/09) --> Persistent small bowel obstruction with small bowel dilatation stable to slightly worse compared with September 24. No free air. Thickened and angulated small bowel loops remain in the lower abdomen. Stable to slight improvement of high density fluid in the lower abdomen and pelvis, most characteristic of hemorrhage. -sbft 09/29 dilated prox/mid small bowel with apparent transition point distally but contrast passes diet advanced . seems to be tolerating liquids stools Pt anxious about d/c...will give her another day and try to d/c tomorrow. discussed with Dr Ramírez and Megan..try to avoid surgery...If she goes home and fails then it may be necessary. (2) DM (diabetes mellitus) Status: Chronic Plan: - SSI (3) HTN (hypertension) Status: Chronic Plan: - resume home mediations Problem Qualifiers (1) DM (diabetes mellitus): (2) HTN (hypertension): Qualified Code: I10 - Essential hypertension Dre Dyson MD Oct 01, 2016 09:10
[2016-10-01] MEDS ORDERED: BISACODYL EC 5 MG TABEC PO ONE (09:30)
[2016-10-01] MEDS: DOCUSATE SODIUM 100 MG CAP PO SCH ×2 (10:13→21:19)
[2016-10-01] MEDS: LOSARTAN 50 MG TAB PO SCH (10:13)
[2016-10-01] MEDS: HYDROCHLOROTHIAZIDE 12.5 MG CAP PO SCH (10:14)
[2016-10-01] MEDS: DULoxetine HCl DR 60 MG CAP PO SCH (10:14)
[2016-10-01] MEDS: PANTOPRAZOLE SODIUM 40 MG VIAL IV PUSH SCH (10:15)
[2016-10-01] MEDS: POLYETHYLENE GLYCOL 17 GM PKG PO SCH ×2 (10:15→21:19)
[2016-10-01 12:00] VITALS: BP 127/79; PULSE 86; RESP 14; TEMP 96.9; O2SAT 100
[2016-10-01 16:00] VITALS: BP 155/89; PULSE 85; RESP 14; TEMP 97.3; O2SAT 100
[2016-10-01 20:00] VITALS: BP 140/65; PULSE 82; RESP 18; TEMP 96.3; O2SAT 100
[2016-10-01] MEDS: traZODone HCL 100 MG TAB PO SCH (21:00)
[2016-10-01] MEDS: SODIUM CHLORIDE 0.9% FLUSH 10 ML FLUSH IV FLUSH SCH (21:00)
[2016-10-01] MEDS: ATORVASTATIN 20 MG TAB PO SCH (21:19)
[2016-10-02] VITALS: BP 158/74; PULSE 80; RESP 17; TEMP 97.6; O2SAT 99
[2016-10-02 04:00] VITALS: BP 146/72; PULSE 82; RESP 17; TEMP 97.8; O2SAT 97
[2016-10-02] MEDS: SIMETHICONE 125 MG CHEWABLE TAB PO SCH (05:42)
[2016-10-02] MEDS: LEVOTHYROXINE SODIUM 25 MCG TAB PO SCH (05:42)
[2016-10-02] MEDS: INSULIN ASPART SUPPLEMENTAL SCALE SQ SCH ×2 (05:44→11:00)
[2016-10-02] MEDS: NS + KCL 20 MEQ INJ 1,000 ML IV SCH (05:44)
[2016-10-02 08:00] VITALS: BP 162/75; PULSE 78; RESP 14; TEMP 98.9; O2SAT 96
[2016-10-02] MEDS ORDERED: SIME1CHW11 PO (08:58)
[2016-10-02] MEDS ORDERED: DOCU1CAP39 PO (08:58)
[2016-10-02] MEDS ORDERED: POLY17S PO (08:58)
[2016-10-02] MEDS ORDERED: DULC5TAB PO (08:58)
[2016-10-02] MEDS: SODIUM CHLORIDE 0.9% FLUSH 10 ML FLUSH IV FLUSH SCH (09:00)
[2016-10-02] MEDS: DHEA PO SCH (09:00)
--- NOTE | 2016-10-02 09:00 | HHI.DCPOC ---
Discharge Care Plan Diagnosis: (1) Partial obstruction of small intestine (2) DM (diabetes mellitus) (3) HTN (hypertension) Goals to Promote Your Health * To prevent worsening of your condition and complications * To maintain your health at the optimal level Directions to Meet Your Goals Take your medications as prescribed Follow your dietary instruction Follow activity as directed Keep your appointments as scheduled Take your immunizations and boosters as scheduled If your symptoms worsen call your PCP, if no PCP go to Urgent Care Center or Emergency Room Smoking is Dangerous to Your Health. Avoid second hand smoke Call the 24-hour hour crisis hotline for domestic abuse at Dre Dyson MD Oct 02, 2016 09:00
--- NOTE | 2016-10-02 09:03 | HHI.DS ---
Discharge Summary Admission Date Sep 28, 2016 at 10:35 Discharge Date: Oct 02, 2016 Admitting Diagnosis ILEUS (1) Partial obstruction of small intestine Diagnosis: Principal (2) DM (diabetes mellitus) Diagnosis: Secondary (3) HTN (hypertension) Diagnosis: Secondary Brief History Pt is a pleasant 61 y/o F with h/o DM2, HTN, and CHERRIE who underwent surgery approximately 2 weeks ago for right ovarian mass. Pathology was benign. Patient's postoperative hospitalization course was complicated by anemia requiring transfusion. Patient was ultimately discharged to home on 09/16/16. Patient presented to the [facility] ER last night with complaint of abdominal pain, tachycardia, and diaphoresis. ER physician noted the patient was quite anxious. Patient underwent CTA of the chest as an outpatient which was negative for pulmonary embolism. In the ER, patient underwent CT of the abdomen which showed Development of mild small bowel dilatation with air-fluid levels and distal decompression the terminal ileum most characteristic of an early or partial small bowel obstruction with some mildly thickened and angulated loop seen in the lower abdomen and pelvis. Patient denies nausea or vomiting. KUB obtained (09/25/16) showed continued bowel dilation. Pt reports that she was been nauseated for the last 2 days but has had NO vomiting. Pt reports that she had a small bowel movement last night. Pt does NOT appear to be in pain and is ambulating in the hallways with her . CBC/BMP: 09/30/16 0927 10/01/16 0530 Significant Findings Laboratory Tests Test 09/29/16 09/30/16 10/01/16 17:09 09:27 05:30 Potassium Level 3.2 MEQ/L 3.3 MEQ/L (3.5-5.1) (3.5-5.1) Random Glucose 116 MG/DL (74-106) Hematocrit 34.6 % (35.0-46.0) Monocytes (%) (Auto) 13.8 % (0.0-8.0) Blood Urea Nitrogen 6 MG/DL (7-18) Creatinine 0.44 MG/DL (0.50-1.00) Hospital Course (1) Partial obstruction of small intestine Status: Acute - Pt underwent robotic assisted laparoscopic resection of pelvic mass and lysis of adhesions back on 09/12/16. - Her post-op course was complicated by sudden drop in Hgb with apparent hemorrhagic ascites on CT. It was felt to be related to her surgery and pt was given blood transfusion for acute symptomatic blood loss anemia. - She was reportedly recovering well at home until 09/24/16, when she started having abdominal pain which persisted and so she presented to the [place] ER for evaluation. CT was obtained that shown loops of dilated bowel suggestive of partial SBO/Ileus. She was brought to [place] ER for further evaluation. - KUB (09/25/16) --> dilated loops of bowel - KUB (09/26/16) --> Slight improvement compared to images on 09/25 - KUB (09/27/16) --> Persistent bowel dilatation, perhaps slightly decreased from prior. - CT Abd/pelvis (09/28/09) --> Persistent small bowel obstruction with small bowel dilatation stable to slightly worse compared with September 24. No free air. Thickened and angulated small bowel loops remain in the lower abdomen. Stable to slight improvement of high density fluid in the lower abdomen and pelvis, most characteristic of hemorrhage. -sbft 09/29 dilated prox/mid small bowel with apparent transition point distally but contrast passes diet advanced . seems to be tolerating liquids stools discussed with Dr Ramírez and Megan..try to avoid surgery...If she goes home and fails then it may be necessary. (2) DM (diabetes mellitus) Status: Chronic (3) HTN (hypertension) Status: Chronic Pt Condition on Discharge: Stable Discharge Disposition: Discharge Home Discharge Instructions DIET: Follow Instructions for: Soft Diet, Low Residue Diet Activities you can perform: Regular-No Restrictions Follow up Referrals: Surgical - 10 Days with Mj Ramírez MD Surgical - [address] Guzman New Medications: Bisacodyl (Dulcolax ) 5 Mg Tabdr 10 MG PO DAILY constipation #14 Ref 0 TAB Docusate Sodium (Dok) 100 Mg Cap 100 MG PO BID Constipation Days 30 CAP Polyethylene Glycol 3350 Powder (Polyethylene Glycol 3350 Powder) 17 Gm Pow 17 GM PO BID PRN constipation Days 14 CONTAINER Simethicone (Gas Relief Maximum Streng) 125 Mg Chw 125 MG PO Q8HR gas/bloating Days 14 EA Continued Medications: Atorvastatin (Atorvastatin) 20 Mg Tab 20 MG PO HS Cholesterol Management #30 Ref 0 TAB Cholecalciferol (Vitamin D-3) 2,000 Unit Tab 1 TAB PO DAILY Duloxetine DR (Duloxetine DR) 60 Mg Capdr 60 MG PO DAILY #30 Ref 0 CAP Lactobacillus Rhamnosus (GG) (Align) 4 Mg Cap 4 MG PO DAILY Nutritional Supplement Ref 0 CAP Levothyroxine (Levothyroxine) 25 Mcg Tab 25 MCG PO DAILY Thyroid #30 Ref 0 TAB Losartan-Hydrochlorothiazide (Losartan-Hydrochlorothiazide) 50-12.5 Mg Tab 1 TAB PO DAILY Blood Pressure Management #30 Ref 0 TAB Metformin (Metformin) 850 Mg Tab 850 MG PO BIDPC With meals Blood Sugar Management Ref 0 TAB [place]-3 Fatty Acids (Fish Oil) 300 Mg Capsule Unknown Dose PO DAILY Ondansetron (Zofran) 4 Mg Tab 4 MG PO Q6HR PRN NAUSEA OR VOMITING #30 Ref 0 TAB Prasterone (Dhea) 50 Mg Cap 1 CAP PO DAILY Trazodone (Trazodone) 100 Mg Tablet 100 MG PO HS Control Depression #30 Ref 0 TAB Vitamin E (Vitamin E) 200 Unit Cap 400 UNITS PO DAILY Nutritional Supplement Ref 0 CAP Discontinued Medications: Oxycodone-Acetaminophen (Oxycodone-Acetaminophen) 5-325 mg Tab 1 TAB PO Q4H PRN PAIN SCALE 1 TO 5 #40 Ref 0 TAB Dre Dyson MD Oct 02, 2016 09:03
[2016-10-02] MEDS: LOSARTAN 50 MG TAB PO SCH (09:18)
[2016-10-02] MEDS: HYDROCHLOROTHIAZIDE 12.5 MG CAP PO SCH (09:18)
[2016-10-02] MEDS: PANTOPRAZOLE SODIUM 40 MG VIAL IV PUSH SCH (09:18)
[2016-10-02] MEDS: DOCUSATE SODIUM 100 MG CAP PO SCH (09:19)
[2016-10-02] MEDS: POLYETHYLENE GLYCOL 17 GM PKG PO SCH (09:20)
[2016-10-02] MEDS: DULoxetine HCl DR 60 MG CAP PO SCH (09:20)
== END 2016-10-02 12:32 | disposition home or self-care (01) | DRG 389 ==
LOC: NEDDLT 23:16 → NEPGCP 23:19 → OBSVTOIN 09-28 10:35 → HOCB 09-30 01:57
PROVIDERS: ADMIT Hospitalist; ATTEND Hospitalist
DX: K56.60 Unspecified intestinal obstruction (principal); D62 Acute posthemorrhagic anemia; R18.8 Other ascites; I10 Essential (primary) hypertension; E03.9 Hypothyroidism, unspecified; E11.9 Type 2 diabetes mellitus without complications; E78.5 Hyperlipidemia, unspecified; G47.33 Obstructive sleep apnea (adult) (pediatric); Z87.442 Personal history of urinary calculi; Z90.710 Acquired absence of both cervix and uterus
CPT/HCPCS: 71020; 71275; 74000; 74177; 74250; 80048; 80053; 81001; 82948; 83690; 83735; 84100; 84484; 85025; 85610; 93005; 96361; 96372; 96375; 96376; C9113; G0378; J1815; J1885; J2405; J2765; J3480; J7030; J7042; Q9963; Q9967